=== PATIENT | male | born 1940 | race Caucasian/White ===

== ENCOUNTER → 2016-12-25 | Outpatient (CLI) | payer MEDICARE, BC ==
--- NOTE | 2016-12-25 13:36 | CTL ---
EXAMINATION TYPE: CT Low Dose Lung DATE OF EXAM ORDERED: 12/25/2016 1:03 PM HISTORY: Cough, tobacco use. Lung cancer screening CT DLP: 127.[address] CTDI: 3.6 mGy Automated exposure control for dose reduction was used. SCREENING VISIT: COMPARISON: None TECHNIQUE: Low dose computed tomography scan was performed through the chest at 1 mm thick sections a nd reconstructed images in the coronal plane at [address] DIAGNOSTIC QUALITY: Satisfactory FINDINGS: LUNG NODULES: None. Biapical pleural-based thickening noted. No consolidative pneumonia, pleural effusion or pneumothorax . Within the right upper lobe axial image 52 there is a 2 mm pulmonary nodule. Additional calcified nod ule in the right upper lobe image 64 measuring 2 mm. Additional 2 mm nodule within the right upper lo be axial image 106. Calcified nodule in the right middle lobe axial image 114 There is a larger calcified nodule within the superior segment right lower lobe axial image 121 sugge stive of granuloma. Within the left upper lobe lingular segment image #140 there is a calcified nodule measuring 3 mm. Atherosclerotic changes of the aorta. Measurements at the upper limits of normal. Calcified lymph nod es in the hilum. Coronary artery calcification seen. Cardiomegaly noted. There is a large mixed density mass involving the right adrenal gland likely related to myelo lipoma or angiomyolipoma. Measures 7 cm and could be correlated with MRI. Degenerative and hypertrophic change of the spine. IMPRESSION: Probably benign finding 1. Multiple pulmonary nodules measuring 5 mm or less some of which are calcified suggestive of granul lili. 2. 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 This could be correlated with dedicated CT scan as this is only partially inc luded on this CT of the chest. FOLLOW UP CT CHEST RECOMMENDATION: 6 month follow-up recommended CT LUNG RAD: 3
== END ==
LOC: RADCTMAIN 11:49
PROVIDERS: ATTEND Family Medicine
DX: Z09 Encounter for follow-up examination after completed treatment for conditions other than malignant neoplasm (principal); R91.8 Other nonspecific abnormal finding of lung field; Z87.891 Personal history of nicotine dependence; Z12.2 Encounter for screening for malignant neoplasm of respiratory organs

== ENCOUNTER 2016-12-29 09:07 | Day surgery (SDC) | payer MEDICARE, BC ==
[2016-12-25 12:36] VITALS: BMI 34.9
[~2016-12-29 09:07] MED LIST: LACTATED RINGERS 1,000 ML IV SCH; LIDOCAINE 1% 20 ML VIAL (10MG/ML) FOR IV START INTRADERMA PRN
[2016-12-29 09:24] VITALS: TEMP 97
[2016-12-29] MEDS ORDERED: LIDOCAINE 1% INJ 10MG/ML (20 ML MDV) ONE (10:15)
[2016-12-29] MEDS ORDERED: PROPOFOL 10 MG/ML 20 ML VIAL IV ONE (10:15)
--- NOTE | 2016-12-29 10:22 | P.GSHP ---
History of Present Illness H&P Date: 12/29/16 Chief Complaint: History colonic Polyps, screening colonoscopy This is a 76-year-old male referred from Kim Howell. Patient presented today for screening colonoscopy. His last colonoscopy was over 10 years ago. He has history of colonic polyps - Constitutional Constitutional: Reports as per HPI Past Medical History Past Medical History: Hypertension, Prostate Disorder, Thyroid Disorder Additional Past Medical History / Comment(s): hemorrhoids, occasional rectal bleeding History of Any Multi-Drug Resistant Organisms: None Reported Past Surgical History: Hernia Repair, Orthopedic Surgery Additional Past Surgical History / Comment(s): carpal tunnel repair Past Anesthesia/Blood Transfusion Reactions: No Reported Reaction Smoking Status: Current every day smoker Past Alcohol Use History: Rare Additional Past Alcohol Use History / Comment(s): 1ppd for 60 yrs. Past Drug Use History: None Reported - Past Family History Mother Family Medical History: No Reported History Medications and Allergies Home Medications Medication Instructions Recorded Confirmed Type Irbesartan [Avapro] 300 mg PO DAILY 12/25/16 12/29/16 History Levothyroxine Sodium [Synthroid] 150 mcg PO DAILY 12/25/16 12/29/16 History Tamsulosin [Flomax] 0.4 mg PO DAILY 12/25/16 12/29/16 History Allergies Allergy/AdvReac Type Severity Reaction Status Date / Time No Known Allergies Allergy Verified 12/29/16 09:18 Surgical - Exam Vital Signs Temp Pulse Resp BP Pulse Ox 97.0 F L 73 18 153/92 97 12/29/16 09:23 12/29/16 09:23 12/29/16 09:23 12/29/16 09:23 12/29/16 09:23 - General well developed, no distress - Eyes PERRL - ENT normal pinna - Neck no masses - Respiratory normal expansion - Cardiovascular Rhythm: regular - Abdomen Abdomen: soft, non tender Assessment and Plan Plan: History of colonic polyps. We'll perform screening colonoscopy.
--- NOTE | 2016-12-29 10:32 | P.OP ---
Date of Procedure: 12/29/16 Preoperative Diagnosis: Screening colonoscopy History of colonic polyps Postoperative Diagnosis: Rectal polyp Diverticulosis Procedure(s) Performed: Colonoscopy Anesthesia: MAC Surgeon: Farshad Verde Pathology: other (Rectal polyp) Condition: stable Disposition: PACU Description of Procedure: The patient's placed on the endoscopy table in the lateral position. He received IV sedation. Digital rectal exam was performed which revealed no abnormalities. The prostate was symmetrical without nodules. The flexible colonoscope was then placed the patient's anus and passed throughout the entire colon. The ileocecal valve was visualized. The cecum, ascending and transverse colon appeared normal. In the descending; there is mild diverticular changes. Scope was then brought back the rectum and there appeared to be a small sessile polyp. This was removed the forcep. The scope was withdrawn for patient.
[2016-12-29 10:55] VITALS: BP 136/75; PULSE 57; RESP 18
== END 2016-12-29 11:16 | disposition home or self-care (01) ==
LOC: ORWHC2ENDO 09:07
PROVIDERS: ATTEND Surgery
DX: Z12.11 Encounter for screening for malignant neoplasm of colon (principal); Z86.010 Personal history of colon polyps; K62.1 Rectal polyp; K57.30 Diverticulosis of large intestine without perforation or abscess without bleeding; I10 Essential (primary) hypertension; E07.9 Disorder of thyroid, unspecified; F17.200 Nicotine dependence, unspecified, uncomplicated; N40.0 Benign prostatic hyperplasia without lower urinary tract symptoms; Z79.899 Other long term (current) drug therapy
CPT/HCPCS: 88305; 45380; J2001; J2704

== ENCOUNTER → 2017-01-15 | Outpatient (CLI) | payer MEDICARE, BC ==
[2017-01-15 16:44] LABS: Blood Urea Nitrogen 24 mg/dL (9-20); Non-African American GFR(MDRD) 56 (>60 ml/min/1.73 sqM)
--- NOTE | 2017-01-15 18:15 | CT ---
EXAMINATION TYPE: CT abdomen pelvis wo/w con DATE OF EXAM: 01/15/2017 6:01 PM COMPARISON: NONE HISTORY: Disorder of adrenal gland. CT DLP: 2364.80 mGycm Automated exposure control for dose reduction was used. TECHNIQUE: Helical acquisition of images was performed from the lung bases through the pelvis. CONTRAST: Performed with Oral Contrast and without and with IV Contrast, patient injected with 80 mL of Visipaq ue 320. FINDINGS: Lung bases are clear. There is no pleural effusion. Heart size is normal. Liver spleen pancreas gallbladder appear normal. Bile ducts are not dilated. There is an 8 x 7 cm mas s at the upper pole right kidney. This is probably arising from the right adrenal gland and has fat a nd soft tissue density. There is no calcification. The mass appears to surround the right adrenal gla nd. Left adrenal gland appears normal. There is a 3 cm cortical cyst on the lower pole right kidney. There is no hydronephrosis. There is no retroperitoneal adenopathy. There is no ascites. The noncontrast images show no calcification in the mass. The contrast images show no definite enhanc ement. The appendix appears normal. I see no intestinal wall thickening. There are no dilated loops. Abdominal aorta is atheromatous. Darryn dder distends smoothly. There is no sign of a pelvic mass. I see no bony destructive process.: IMPRESSION: LARGE MASS AT THE UPPER POLE RIGHT KIDNEY PROBABLY ARISES FROM THE ADRENAL GLAND. THIS HAS FAT AND SO FT TISSUE DENSITY. THIS IS PREDOMINANTLY FAT. I WOULD CONSIDER THE POSSIBILITIES OF A ANGIOMYOLIPOMA, ATYPICAL LIPOMA OR A TERATOMA. THE MASS HAS A FAIRLY WELL-DEFINED THIN CAPSULE AND THIS SUGGESTS A M ORE BENIGN ETIOLOGY. RIGHT RENAL CYST. MASS IS NOT CHANGED IN SIZE COMPARED TO CT SCAN OF 12-25-16. THERE IS A 2 MM NONOBSTR UCTING LEFT RENAL CORTICAL CALCIFICATION OF DOUBTFUL SIGNIFICANCE. THERE ARE 1 TO 2 MM TINY CALCIFICA TIONS IN THE RIGHT KIDNEY THAT COULD BE VASCULAR.
== END | disposition home or self-care (01) ==
LOC: RADCTMAIN 16:05
PROVIDERS: ATTEND Family Medicine
DX: N28.1 Cyst of kidney, acquired (principal); N28.89 Other specified disorders of kidney and ureter
CPT/HCPCS: 82565; 84520; 74178; 36415; Q9967

== ENCOUNTER 2017-01-27 06:30 | Day surgery (SDC) | payer MEDICARE, BC ==
[2017-01-26 11:58] VITALS: BMI 31.9
[~2017-01-27 06:30] MED LIST changes: +DEXAMETHASONE SOD PHOSPHATE 10 MG/ML 1 ML VIAL IV ONE; +HEPARIN SODIUM,PORCINE 5,000 UNIT/ML 1 ML VIAL SQ ONE; +HYDROmorphone 1 MG/ML 1 ML SYRINGE IVP PRN; +ONDANSETRON 4 MG/2 ML VIAL IVP ONE; +ceFAZolin 2 GM in SODIUM CHLORIDE 0.9% 100 ML IVPB ONE
[2017-01-27 07:27] LABS: Anion Gap 11 mmol/L; Calcium 9.7 mg/dL (8.4-10.2); Carbon Dioxide 25 mmol/L (22-30); Chloride 107 mmol/L (98-107); Glucose 107 mg/dL (74-99); Non-African American GFR(MDRD) 55 (>60 ml/min/1.73 sqM); Sodium 143 mmol/L (137-145)
[2017-01-27] MEDS ORDERED: BUPIVACAIN-EPI 0.25%-1:200,000 30 ML VIAL SQ ONE ×3 (07:32)
--- NOTE | 2017-01-27 07:35 | P.GSHP ---
History of Present Illness H&P Date: 01/27/17 Chief Complaint: Incarcerated ventral hernia This is a 75-year-old male who presents today for laparoscopic robotic system repair of incarcerated ventral hernia. Patient developed a tender mass approximate 47 is above the umbilicus. Past Medical History Past Medical History: Hypertension, Prostate Disorder, Thyroid Disorder Additional Past Medical History / Comment(s): HEMORRHOIDS, OCCASIONAL RECTAL BLEEDING, HERNIA. History of Any Multi-Drug Resistant Organisms: None Reported Past Surgical History: Hernia Repair, Orthopedic Surgery Additional Past Surgical History / Comment(s): CARPAL TUNNEL REPAIR, COLONOSCOPY 12/29/16 Past Anesthesia/Blood Transfusion Reactions: No Reported Reaction Past Psychological History: No Psychological Hx Reported Smoking Status: Current every day smoker Past Alcohol Use History: Daily Additional Past Alcohol Use History / Comment(s): DRINKS 6 PACK PER WEEK . SMOKES 1PPD , SMOKING FOR 60 YEARS. Past Drug Use History: None Reported - Past Family History Mother Family Medical History: No Reported History Medications and Allergies Home Medications Medication Instructions Recorded Confirmed Type Irbesartan [Avapro] 300 mg PO DAILY 12/25/16 01/27/17 History Levothyroxine Sodium [Synthroid] 150 mcg PO DAILY 12/25/16 01/27/17 History Tamsulosin [Flomax] 0.4 mg PO DAILY 12/25/16 01/27/17 History Allergies Allergy/AdvReac Type Severity Reaction Status Date / Time No Known Allergies Allergy Verified 01/27/17 06:37 Surgical - Exam Vital Signs Temp Pulse Resp BP Pulse Ox 97.7 F 55 L 16 181/98 96 01/27/17 06:47 01/27/17 06:47 01/27/17 06:47 01/27/17 06:47 01/27/17 06:47 - General well developed, no distress - Eyes PERRL - ENT normal pinna - Neck no masses - Respiratory normal expansion - Cardiovascular Rhythm: regular - Abdomen 4 cm incarcerated ventral hernia located approximately 5 cm above the umbilicus. The mass is firm and mildly tender. Abdomen: soft, non tender Assessment and Plan Plan: Incarcerated ventral hernia. We'll perform laparoscopic robotic-assisted repair.
[2017-01-27 07:38] LABS: Basophils % (A) 1 %; CH 30.7; Eosinophils # (A) 0.2 k/uL (0-0.7); Eosinophils % (A) 3 %; HCT 47.4 % (39.0-53.0); HDW 2.42; HGB 15.9 gm/dL (13.0-17.5); Luc # (Auto) 0.22; Luc % (Auto) 3; Lymphocytes # (A) 2.1 k/uL (1.0-4.8); Lymphocytes % (A) 32 %; MCH 30.4 pg (25.0-35.0); MCHC 33.6 g/dL (31.0-37.0); MCV 90.5 fL (80.0-100.0); Monocytes # (A) 0.6 k/uL (0-1.0); Monocytes % (A) 9 %; Neutrophils # (A) 3.5 k/uL (1.3-7.7); Neutrophils % (A) 53 %; RBC 5.24 m/uL (4.30-5.90); RDW 13.7 % (11.5-15.5); WBC 6.7 k/uL (3.8-10.6)
[2017-01-27] MEDS ORDERED: MIDAZOLAM 2 MG/2 ML VIAL ONE (07:44)
[2017-01-27] MEDS ORDERED: SUCCINYLCHOLINE CHLORIDE 100 MG/5 ML SYR IV ONE (07:44)
[2017-01-27] MEDS ORDERED: fentaNYL (PF) 50 MCG/ML 2 ML AMP ONE (07:44)
[2017-01-27] MEDS ORDERED: LIDOCAINE 1% INJ 10MG/ML (20 ML MDV) ONE (07:44)
[2017-01-27] MEDS ORDERED: GLYCOPYRROLATE 0.2 MG/ML 2 ML VIAL ONE (07:44)
[2017-01-27] MEDS ORDERED: ePHEDrine 50 MG/ML 1 ML AMP ONE (07:44)
[2017-01-27] MEDS ORDERED: NEOSTIGMINE 1 MG/ML 10 ML VIAL ONE (07:44)
[2017-01-27] MEDS ORDERED: ROCURONIUM BROMIDE 10 MG/ML 10 ML VIAL IV ONE (07:44)
[2017-01-27] MEDS ORDERED: PROPOFOL 10 MG/ML 20 ML VIAL IV ONE (07:44)
[2017-01-27 07:45] LABS: Potassium 5.4 mmol/L (3.5-5.1)
[2017-01-27 08:37] LABS: Blood Urea Nitrogen 22 mg/dL (9-20)
--- NOTE | 2017-01-27 08:48 | P.OP ---
Date of Procedure: 01/27/17 Preoperative Diagnosis: Incarcerated ventral hernia Postoperative Diagnosis: Incarcerated ventral hernia Procedure(s) Performed: Laparoscopic robotic-assisted repair of incarcerated ventral hernia Anesthesia: CESIA Surgeon: Farshad Verde Estimated Blood Loss (ml): 5 Pathology: none sent Condition: stable Disposition: PACU Description of Procedure: Patient's placed on the operating table in the supine position. He received general anesthesia. His abdomen was then prepped and draped usual sterile fashion. The skin incision sites were anesthetized with 1% local Xylocaine. Using an 11 blade the skin was incised in the left upper quadrant 5 mm trocar was placed into the peritoneal cavity. The abdomen was insufflated. After adequate insufflation the laparoscope was placed back into the peritoneal cavity. Next a 8 mm robotic trocar was placed in the left lower quadrant and a 12 mm trochars placed the left lateral position. And the original 5 mm trocar was exchanged for an 8 mm robotic trocar. The patient's placed in the left side up position. The patient was undocked the robot. There were adhesions noted within the peritoneal cavity. The proximal to 10 minutes of operative time used to lyse adhesions. The incarcerated ventral hernia was visualized. The omentum was reduced back into the perineal cavity. The fascial defect was then closed with oh the lock suture. Next the ventral light ST mesh was used to buttress the repair the ventral light ST mesh was secured with 2 OV lock suture. The patient was then undocked from the robot. And then the needles were retrieved. The fascia the 12 mm trocar site was closed with 0 Ethibond suture using a David Magana suture passer and then the skin was closed interrupted 3-0 Monocryl suture. Dermabond was applied. Patient was sent to recovery in stable condition.
[2017-01-27] MEDS ORDERED: LACTATED RINGERS 1,000 ML IV ONE (08:53)
[2017-01-27 09:13] VITALS: TEMP 97
[2017-01-27 09:20] VITALS: RESP 16
[2017-01-27 10:36] VITALS: BP 165/78; PULSE 55
[2017-01-27] MEDS ORDERED: HYDROcodone/APAP 7.5-325MG 1 EACH TAB PO ONE (11:27)
== END 2017-01-27 12:16 | disposition home or self-care (01) ==
LOC: OR 06:30
PROVIDERS: ATTEND Surgery
DX: K43.6 Other and unspecified ventral hernia with obstruction, without gangrene (principal); I10 Essential (primary) hypertension; E07.9 Disorder of thyroid, unspecified; N40.0 Benign prostatic hyperplasia without lower urinary tract symptoms; F17.200 Nicotine dependence, unspecified, uncomplicated; Z79.899 Other long term (current) drug therapy
CPT/HCPCS: 49653; 93005; 80048; 85025; C1781; J2250; J1100; J2710; J0690; J2405; J2001; J3010; J0330; J2704

== ENCOUNTER 2017-06-04 09:36 | Day surgery (SDC) | payer MEDICARE, BC ==
[2017-06-03 08:19] VITALS: BMI 33.4
[~2017-06-04 09:36] MED LIST changes: -DEXAMETHASONE SOD PHOSPHATE 10 MG/ML 1 ML VIAL IV ONE; -LACTATED RINGERS 1,000 ML IV SCH; -LIDOCAINE 1% 20 ML VIAL (10MG/ML) FOR IV START INTRADERMA PRN; +NA PHOS,M-B/NA PHOS,DI-BA 133 ML ENEMA RECTAL ONE; -ONDANSETRON 4 MG/2 ML VIAL IVP ONE; +ONDANSETRON 4 MG/2 ML VIAL IVP PRN; +Pre Op ABX Message 1 EACH MISC MISCELLANE ONE; -ceFAZolin 2 GM in SODIUM CHLORIDE 0.9% 100 ML IVPB ONE
[2017-06-04 10:04] VITALS: TEMP 97.4
[2017-06-04] MEDS ORDERED: LIDOCAINE 1% 20 ML VIAL (10MG/ML) FOR IV START INTRADERMA ONE (10:25)
[2017-06-04] MEDS: LACTATED RINGERS 1,000 ML IV SCH ×2 (10:33→11:33)
--- NOTE | 2017-06-04 11:21 | P.GSHP ---
History of Present Illness H&P Date: 06/04/17 Chief Complaint: Anal bleeding, itching This is a 76-year-old male for from Dr. Kim Howell. Patient is today for hemorrhoidectomy. He's had issues with anal itching and bleeding. - Constitutional Constitutional: Reports as per HPI Past Medical History Past Medical History: Hypertension, Thyroid Disorder Additional Past Medical History / Comment(s): hemorrhoids, History of Any Multi-Drug Resistant Organisms: None Reported Past Surgical History: Hernia Repair, Tonsillectomy Additional Past Surgical History / Comment(s): "rupture near scrotom", Past Anesthesia/Blood Transfusion Reactions: No Reported Reaction Smoking Status: Current every day smoker - Past Family History Mother Family Medical History: No Reported History Medications and Allergies Home Medications Medication Instructions Recorded Confirmed Type Irbesartan [Avapro] 300 mg PO DAILY 12/25/16 06/04/17 History Levothyroxine Sodium [Synthroid] 150 mcg PO DAILY 12/25/16 06/04/17 History Tamsulosin [Flomax] 0.4 mg PO DAILY 12/25/16 06/04/17 History Allergies Allergy/AdvReac Type Severity Reaction Status Date / Time No Known Allergies Allergy Verified 06/04/17 10:08 Surgical - Exam Vital Signs Temp Pulse Resp BP Pulse Ox 97.4 F L 54 L 16 169/75 96 06/04/17 10:02 06/04/17 10:02 06/04/17 10:02 06/04/17 10:02 06/04/17 10:02 - General well developed, no distress - Eyes PERRL - ENT normal pinna - Neck no masses - Respiratory normal expansion - Cardiovascular Rhythm: regular - Abdomen Abdomen: soft, non tender - Rectum Hemorrhoids: moderate (Internal and external hemorrhoids) Assessment and Plan Plan: Internal and external hemorrhoids. We'll perform hemorrhoidectomy.
[2017-06-04] MEDS ORDERED: PROPOFOL 10 MG/ML 20 ML VIAL IV ONE (11:35)
[2017-06-04] MEDS ORDERED: fentaNYL (PF) 50 MCG/ML 2 ML AMP ONE (11:35)
[2017-06-04] MEDS ORDERED: MIDAZOLAM 2 MG/2 ML VIAL ONE (11:35)
[2017-06-04] MEDS ORDERED: LIDOCAINE 1% INJ 10MG/ML (20 ML MDV) ONE (11:35)
[2017-06-04] MEDS ORDERED: BUPIVACAINE-EPI 0.5%-1:200,000 10 ML VIAL SQ ONE (11:51)
[2017-06-04] MEDS ORDERED: LIDOCAINE 1% INJ 10MG/ML (20 ML MDV) SQ ONE (11:52)
[2017-06-04] MEDS ORDERED: GELATIN SPONGE,ABSORB (LARGE) 1 EACH SPONGE TOPICAL ONE (11:54)
--- NOTE | 2017-06-04 12:11 | P.OP ---
Date of Procedure: 06/04/17 Preoperative Diagnosis: Internal and Hemorrhoids Postoperative Diagnosis: Internal and external hemorrhoids Procedure(s) Performed: Internal and external hemorrhoidectomy Implants: Anesthesia: MAC Surgeon: Farshad Verde Estimated Blood Loss (ml): 5 Pathology: other (Internal and external hemorrhoids) Condition: stable Disposition: PACU Indications for Procedure: Operative Findings: Description of Procedure: The patient's placed on the operative table in the prone jackknife position. He received IV sedation. His perineum was prepped and draped usual sterile fashion. Local anesthetic was applied to the anus. The bivalved anal retractor was used to expose hemorrhoids. The left lateral hemorrhoid column was grasped with a pair of Allis clamps and using Harmonic scissors hemorrhoidectomy is performed. The right anterior and and right posterior hemorrhoidal column was dissected in identical fashion. The specimen sent to pathology. The anus was inspected there is no bleeding seen. The anus was packed with Gelfoam. Patient was sent to recovery room in stable condition.
[2017-06-04 12:37] VITALS: RESP 16
[2017-06-04 13:09] VITALS: BP 119/59; PULSE 54
== END 2017-06-04 13:35 | disposition home or self-care (01) ==
LOC: OR 09:36
PROVIDERS: ATTEND Surgery
DX: K64.8 Other hemorrhoids (principal); K64.4 Residual hemorrhoidal skin tags; I10 Essential (primary) hypertension; E07.9 Disorder of thyroid, unspecified; F17.200 Nicotine dependence, unspecified, uncomplicated; Z79.899 Other long term (current) drug therapy
CPT/HCPCS: 46260; J2250; J1644; J2001; J3010; J2704; 88304; 88305

== ENCOUNTER → 2017-07-23 | Outpatient (CLI) | payer MEDICARE, BC ==
[2017-07-23 14:14] LABS: Blood Urea Nitrogen 21 mg/dL (9-20); Non-African American GFR(MDRD) 59 (>60 ml/min/1.73 sqM)
--- NOTE | 2017-07-23 15:33 | CT ---
EXAMINATION TYPE: CT chest w con DATE OF EXAM: 07/23/2017 COMPARISON: 12-25-16 HISTORY: Pulmonary nodules CT DLP: 473.10 mGycm. Automated Exposure Control for Dose Reduction was Utilized. TECHNIQUE: CT scan of the thorax is performed following with IV Contrast, patient injected with 100 ml mL of Omnipaque 300. FINDINGS: LUNGS: The previously seen 2 mm pulmonary nodule within the right upper lobe is not visualized on tod ay's examination and may relate to slice. 2 mm calcified nodule does not appear calcified on today's examination, however is unchanged. Another 2 mm right upper lobe nodule and right middle lobe 2 mm ca lcified pulmonary nodule both previously seen on the examination of 12/25/2016 are not identified, also likely due to slice selection. Calcified 3 mm pulmonary nodule within the superior right lower lobe seen on series 4 image 28 is now identified. 2 mm noncalcified left pulmonary nodule near the interlobar fissure is present on series 4 image 34. No pulmonary masses are seen. There is no pleural effusion or pneumothorax seen. The tr acheobronchial tree is patent. MEDIASTINUM: There are no greater than 1 cm hilar or mediastinal lymph nodes. Calcified hilar lymph nodes are again demonstrated. No pericardial effusion is seen. Moderate three-vessel coronary artery atherosclerosis is noted. OTHER: There is stability of the approximately 7.2 x 7.3 cm right adrenal gland lesion favored to rep resent a benign adrenal myelolipoma. Differences in measurement are related to differences in techniq ue and this mass has not decreased in size in the interim. There is partial visualization of a probab le left midpole renal cyst measuring 2.2 cm. Degenerative changes of the thoracic spine are seen, mil d in degree. IMPRESSION: 1. Multiple subcentimeter pulmonary nodules, most of which are calcified and favored to represent seq uela of benign granulomatous disease. Some of the previously seen pulmonary nodules are not visualize d given the small size and differences in slice selection. The nodules that are redemonstrated are st able. 2. Stability of the approximately 7.3 cm right adrenal gland lesion with macroscopic fat favored to r epresent a benign adrenal myelolipoma. 3. Moderate three-vessel coronary artery atherosclerosis.
== END | disposition home or self-care (01) ==
LOC: RADCTMAIN 13:15
PROVIDERS: ATTEND Family Medicine
DX: I25.10 Atherosclerotic heart disease of native coronary artery without angina pectoris (principal); R91.8 Other nonspecific abnormal finding of lung field
CPT/HCPCS: 82565; 84520; 71260; 36415; Q9967

== ENCOUNTER → 2018-07-20 | Outpatient (CLI) | payer MEDICARE ==
--- NOTE | 2018-07-20 08:57 | CT ---
EXAMINATION TYPE: CT abdomen w con DATE OF EXAM: 07/20/2018 COMPARISON: 01/15/2017 HISTORY: Renal masss CT DLP: 868.2 mGycm Automated exposure control for dose reduction was used. TECHNIQUE: Helical acquisition of images was performed from the lung bases through the top of iliac crest to include entire abdomen. CONTRAST: Performed with Oral Contrast and with IV Contrast, patient injected with 100 mL of Isovue 300. FINDINGS: LUNG BASES: No significant abnormality is appreciated. LIVER/GB: No significant abnormality is appreciated. PANCREAS: No significant abnormality is seen. SPLEEN: Tiny accessory spleen noted. Within the laney hepatis there is a area of lymphadenopathy liberty uring a short axis of 1.2 cm retrospectively stable. ADRENALS: There is a large mixed adrenal mass contains soft tissue and fatty components most typical of a myelo lipoma and less likely related to a angiomyolipoma. Measuring approximately 8 x 7 cm. Left adrenal gland has a normal appearance.. KIDNEYS: No hydronephrosis or nephrolithiasis. There is a stable appearing low density lesion involvi ng the medial mid cortex right kidney measuring 2.3 cm and 12 Hounsfield units compatible simple cyst . Smaller exophytic less than a centimeter lesion involving the right kidney is too small to characte rize but stable. Tiny hypodensity upper pole mid cortex left kidney is stable and too small to charac terize. BOWEL: No significant abnormality is seen. LYMPH NODES: There is a 1.2 cm lymph node in the laney hepatis additional shotty mesenteric adenopath y. OSSEOUS STRUCTURES: No significant abnormality is seen. OTHER: Atherosclerotic change of the vasculature noted. Hypertrophic changes of the vertebral column. IMPRESSION: 1. Stable 8 x 7 cm predominantly fatty mass involving the right adrenal gland most typical myelo lipo ma. Less likely consideration angiomyolipoma. 2. Stable bilateral renal lesions, some of which are too small to characterize, most likely on the ba sis of simple cysts. 3. Stable adenopathy laney hepatis measuring short axis I.2 cm.
== END | disposition home or self-care (01) ==
LOC: RADCTMAIN 07:21
PROVIDERS: ATTEND Family Medicine
DX: N28.89 Other specified disorders of kidney and ureter (principal); E27.8 Other specified disorders of adrenal gland
CPT/HCPCS: 82565; 84520; 74160; 36415; Q9967

== ENCOUNTER → 2019-08-18 | Outpatient (CLI) | payer MEDICARE ==
--- NOTE | 2019-08-18 13:39 | CT ---
EXAMINATION TYPE: CT abdomen wo con DATE OF EXAM: 08/18/2019 COMPARISON: Prior CT 07/20/2018 HISTORY: ADRENAL MASS CT DLP: 565.8 mGycm Automated exposure control for dose reduction was used. TECHNIQUE: Helical acquisition of images was performed from the lung bases through the top of iliac crest to include entire abdomen. CONTRAST: Performed with Oral Contrast and without IV contrast. FINDINGS: Lack of contrast may compromise sensitivity. Present in the soft tissues of the right lower quadrant. Infrarenal abdominal aorta measures approximately 3.3 cm. There is wall calcification pres ent. There are coronary artery calcifications present. LUNG BASES: No significant abnormality is appreciated. LIVER/GB: Low density within the liver may be due to hepatic steatosis, gallbladder is unremarkable. PANCREAS: No significant abnormality is seen. SPLEEN: No significant change is seen, there are some scattered calcifications present likely due to old granulomatous disease. ADRENALS: The predominantly fat density focus in the super renal location on the right side strand-li ke internal soft tissue density is again noted and measures 7.7 x 7.4 x 7.5 cm as compared to previou s exam when it measured 7.1 x 7.3 x 7.3 cm. Mass effect is noted on the superior pole of the right ki dney as on prior exam. KIDNEYS: Some punctate calcifications are associated with the kidneys, there is no hydronephrosis. P robable cortical cysts are again seen within the right kidney in exophytic location medially and late rally. BOWEL: No significant abnormality is seen. LYMPH NODES: No significan abnormality is appreciated. OSSEOUS STRUCTURES: No significant abnormality is seen. FREE AIR: No Free Air visible ASCITES: None visible. RETROPERITONEAL ADENOPATHY: No Retroperitoneal Adenopathy visible. OTHER: IMPRESSION: MINIMAL INTERVAL GROWTH DESCRIBED IN PATIENT'S RIGHT ADRENAL MASS LIKELY REPRESENTING MYELOLIPOMA. POSSIBLE HEPATIC STEATOSIS. NONCONTRAST EXAM. Postop change. Infrarenal abdominal aortic ectasia, fo llow-up.
== END | disposition home or self-care (01) ==
LOC: RADCTMAIN 11:53
PROVIDERS: ATTEND Urology
DX: D35.01 Benign neoplasm of right adrenal gland (principal); I77.811 Abdominal aortic ectasia; Z98.890 Other specified postprocedural states
CPT/HCPCS: 74150

== ENCOUNTER → 2020-08-18 | Outpatient (CLI) | payer MEDICARE ==
--- NOTE | 2020-08-20 15:33 | CT ---
EXAMINATION TYPE: CT abdomen wo con DATE OF EXAM: 08/18/2020 COMPARISON: Prior CT 08/18/2019 HISTORY: follow up known adrenal mass, microhematuria CT DLP: 543.1 mGycm Automated exposure control for dose reduction was used. TECHNIQUE: Helical acquisition of images was performed from the lung bases through the top of iliac crest to include entire abdomen. CONTRAST: Performed with Oral Contrast and without IV contrast. FINDINGS: Lack of intravenous contrast could compromise sensitivity of the exam. Coronary artery calc ifications are noted incidentally. LUNG BASES: There is abnormal density at extending from the right infrahilar location into the right lower lobe which is an interval finding. LIVER/GB: No significant change is appreciated. Low-attenuation within the liver likely due to hepati c steatosis PANCREAS: No significant abnormality is seen. SPLEEN: No significant abnormality is seen. Calcifications within the spleen again noted consistent w ith old granulomatous disease. ADRENALS: No significant interval change is seen. Predominantly fat mass within the right super renal location some soft tissue density associated is well encapsulated and measures 7.7 cm in AP dimensio n, 7.5 cm in transverse dimension 7.9 cm in cephalad to caudal dimension similar to prior exam. KIDNEYS: No significant change is seen. BOWEL: No significant abnormality is seen. LYMPH NODES: No significant abnormality is appreciated. OSSEOUS STRUCTURES: No significant abnormality is seen. FREE AIR: No Free Air visible ASCITES: None visible. RETROPERITONEAL ADENOPATHY: No Retroperitoneal Adenopathy visible. OTHER: Abdominal aorta measures approximately 2.3 cm in greatest dimension, atheromatous changes are present similar to prior IMPRESSION: ABNORMAL INFRAHILAR DENSITY, THERE MAY BE POSTOBSTRUCTIVE ATELECTATIC CHANGES OR PNEUMONIA, RECOMMEND CHEST X-RAY AND POSSIBLY CHEST CT FOLLOW-UP. STABLE RIGHT ADRENAL MASS LIKELY MYELOLIPOMA. HEPATIC S TEATOSIS. NONCONTRAST EXAM. A Yellow level critical message alert has been initiated for Tj Dickey MD via the [employer] Critical Results System on 08/20/2020 3:29 PM. This message alert has been sent to Tj Dickey MD via the preferences provided by the clinician for the receipt of Radiology Critical Findings. Mess age ID [id number].
== END | disposition home or self-care (01) ==
LOC: RADCTMAIN 07:02
PROVIDERS: ATTEND Urology
DX: K76.0 Fatty (change of) liver, not elsewhere classified (principal); E27.8 Other specified disorders of adrenal gland
CPT/HCPCS: 74150

== ENCOUNTER → 2020-08-24 | Outpatient (CLI) | payer MEDICARE ==
--- NOTE | 2020-08-24 15:01 | CT ---
EXAMINATION TYPE: CT chest wo con DATE OF EXAM: 08/24/2020 COMPARISON: CTA chest 07/23/2017. CT abdomen pelvis 06/17/2017. CT abdomen pelvis 08/18/2020. HISTORY: Pneumonia. COPD. CT DLP: 525.1 mGycm Automated exposure control for dose reduction was used. CONTRAST: CT scan of the chest is performed without intravenous contrast. FINDINGS: LUNGS: There is consolidative opacity and atelectasis of the right liver lobe. Calcified granuloma of the right lower lobe redemonstrated. No pleural effusion. No pneumothorax. The tracheobronchial tree is patent. MEDIASTINUM/SOFT TISSUES: No axillary or mediastinal lymphadenopathy greater than 1 cm. Calcified rig ht hilar lymph nodes. Cardiac size is normal. Calcified coronary artery disease. No pericardial effus ion. No thoracic aortic aneurysm. Atherosclerotic change of the thoracic aorta. UPPER ABDOMEN: There is a redemonstrated right adrenal myolipoma measuring up to 7.8 cm, most likely benign. Right renal cysts. OSSEOUS: Degenerative changes of the spine. IMPRESSION: Pneumonia of the right lower lobe with atelectasis. Follow-up to resolution is recommended.
== END | disposition home or self-care (01) ==
LOC: RADCTMAIN 11:51
PROVIDERS: ATTEND Family Medicine
DX: J18.1 Lobar pneumonia, unspecified organism (principal); J98.11 Atelectasis
CPT/HCPCS: 71250

== ENCOUNTER → 2021-08-16 | Outpatient (CLI) | payer MEDICARE ==
--- NOTE | 2021-08-16 09:21 | CT ---
EXAMINATION TYPE: CT chest w con DATE OF EXAM: 08/16/2021 COMPARISON: 08/24/2020 HISTORY: 81-year-old male hemoptysis, weight loss. R91.8, R04.2, Z72.0 TECHNIQUE: Contiguous axial scanning of the chest after the administration of 80 mL of Isovue 300. C oronal/sagittal reconstructions performed. CT DLP: 386.9mGycm. Automatic exposure control utilized for a dose reduction. FINDINGS: Heart normal size without pericardial effusion. Three-vessel coronary artery calcifications are prese nt in remarkable for coronary artery disease. Aortic valvular calcifications. Moderate atherosclerotic calcifications within the joint vessel branc zach anatomy. 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 There is new subcarinal lymphadenopathy measuring up to 2.2 cm. There is cut off of the bronchus intermedius with extensive consolidation throughout the right lower lobe and associated small effusion. There is a fluid collection with air-fluid level measuring 5.2 cm in the medial right lower lobe. Right retrocrural lymph node enlargement 1.5 cm. Stable fat and soft tissue density round mass in the right adrenal gland measuring 7.4 cm compatible with myelolipoma. A medial right renal cyst measuring 2.8 cm is redemonstrated. Tiny layering gallsto mohan. Calcified granulomas within the spleen. Bones: No osseous destructive process. IMPRESSION: 1. Cut off of the bronchus intermedius intermedius. Endobronchial neoplasm should be excluded. Recomm end pulmonary medicine referral. 2. Extensive consolidation/pneumonia throughout the right lower lobe. Some of this density may repres ent mass. 3. However, there is also a 5.2 cm fluid collection with air-fluid level in the right lower lobe. Thi s could represent a pulmonary abscess or necrotic tumor with superinfection. 4. Subcarinal lymphadenopathy measuring up to 2.2 cm. Metastatic disease not excluded. 5. 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
== END | disposition home or self-care (01) ==
LOC: RADCTMAIN 07:11
PROVIDERS: ATTEND Family Medicine
DX: J98.4 Other disorders of lung (principal); R59.0 Localized enlarged lymph nodes; D17.5 Benign lipomatous neoplasm of intra-abdominal organs
CPT/HCPCS: 82565; 84520; 71260; 36415; Q9967

== ENCOUNTER 2021-08-20 12:13 | Emergency (ER) | payer MEDICARE ==
[2021-08-20 12:35] VITALS: BP 164/68; PULSE 85; RESP 19; TEMP 98
[2021-08-20] MEDS ORDERED: BACITRACIN OINT 1 EACH PACKET TOPICAL ONE (12:50)
[2021-08-20] MEDS ORDERED: DIPH,PERTUS(ACELL)TETVAC-LF 0.5 ML VIAL IM ONE (12:50)
--- NOTE | 2021-08-20 12:56 | ED ---
Wound/Laceration HPI - General Chief Complaint: Wound/Laceration Stated Complaint: fall, skin tear on elbow Time Seen by Provider: 08/20/21 12:38 Source: patient, RN notes reviewed Mode of arrival: ambulatory Limitations: no limitations - History of Present Illness Initial Comments: Patient is a 81-year-old male presenting to the ED for left arm lacerations post fall. Patient stated that shot to get out of bed today fell into portable closet next bed. Patient denies hitting head or any loss of consciousness with the event, states he just lost his balance. Patient reports full range of motion no numbness tingling or pain associated with left arm lacerations. Patient states last tetanus was more than 5 years ago. Patient does report they are on Plavix. Patient denies any pain at the site. - Related Data Home Medications Medication Instructions Recorded Confirmed Irbesartan [Avapro] 300 mg PO DAILY 12/25/16 08/24/17 Levothyroxine Sodium [Synthroid] 150 mcg PO DAILY 12/25/16 08/24/17 Tamsulosin [Flomax] 0.4 mg PO DAILY 12/25/16 08/24/17 Aspirin [Adult Low Dose Aspirin EC] 81 mg PO DAILY 08/20/17 08/24/17 Previous Rx's Medication Instructions Recorded Cephalexin [Keflex] 500 mg PO Q6HR #28 cap 08/20/21 Allergies Allergy/AdvReac Type Severity Reaction Status Date / Time No Known Allergies Allergy Verified 08/20/21 12:36 Review of Systems ROS Statement: Those systems with pertinent positive or pertinent negative responses have been documented in the HPI. ROS Other: All systems not noted in ROS Statement are negative. Past Medical History Past Medical History: Hypertension, Thyroid Disorder Additional Past Medical History / Comment(s): hemorrhoids, History of Any Multi-Drug Resistant Organisms: None Reported Past Surgical History: Hernia Repair, Tonsillectomy Additional Past Surgical History / Comment(s): "rupture near scrotom", Past Anesthesia/Blood Transfusion Reactions: No Reported Reaction Past Psychological History: No Psychological Hx Reported Smoking Status: Current every day smoker Past Alcohol Use History: Rare Past Drug Use History: None Reported - Past Family History Mother Family Medical History: No Reported History General Exam Limitations: no limitations General appearance: alert, in no apparent distress Respiratory exam: Present: normal lung sounds bilaterally. Absent: respiratory distress, wheezes, rales, rhonchi, stridor Cardiovascular Exam: Present: regular rate, normal rhythm, normal heart sounds. Absent: systolic murmur, diastolic murmur, rubs, gallop, clicks Left Shoulder Exam: Present: normal inspection Upper Arm exam: Present: full ROM, laceration, ecchymosis Elbow exam: Present: full ROM, laceration, ecchymosis Forearm Wrist exam: Present: full ROM, laceration, ecchymosis Hand Wrist exam: Present: normal inspection, full ROM Vascular: Present: normal capillary refill Neurological exam: Present: alert, oriented X3, CN II-XII intact Skin exam: Present: warm, dry, normal color, other (Skin tears to left forearm, upper arm, elbow) Course Vital Signs 08/20/21 12:33 Temperature 98.0 F Pulse Rate 85 Respiratory 19 Rate Blood Pressure 164/68 O2 Sat by Pulse 98 Oximetry Medical Decision Making - Medical Decision Making Patient presents for left arm skin tears post fall. Patient's wound was cleaned and dressed with antibiotic ointment. Wounds were then dressed, patient was given tetanus booster. Patient was counseled pain management with [id number] medications. Return parameters were discussed. Disposition Clinical Impression: Skin tear of left elbow without complication, Skin tear of left forearm without complication, Skin tear of left upper arm without complication Disposition: HOME SELF-CARE Condition: Stable Instructions (If sedation given, give patient instructions): Moderate Sedation (ED) Additional Instructions: Please return to the Emergency Department if symptoms worsen or any other concerns. Prescriptions: Cephalexin [Keflex] 500 mg PO Q6HR #28 cap Is patient prescribed a controlled substance at d/c from ED?: No Referrals: Sabrina Mcdonald MD [Primary Care Provider] - 1-2 days Time of Disposition: 13:17
== END 2021-08-20 13:34 | disposition home or self-care (01) ==
LOC: EC 12:13
DX: S51.012A Laceration without foreign body of left elbow, initial encounter (principal); S51.812A Laceration without foreign body of left forearm, initial encounter; S41.112A Laceration without foreign body of left upper arm, initial encounter; I10 Essential (primary) hypertension; F17.200 Nicotine dependence, unspecified, uncomplicated; Z23 Encounter for immunization; Z79.890 Hormone replacement therapy; Z79.82 Long term (current) use of aspirin; Z79.899 Other long term (current) drug therapy; W18.30XA Fall on same level, unspecified, initial encounter
CPT/HCPCS: 90471; 90715; 99283

== ENCOUNTER → 2021-08-23 | Outpatient (CLI) | payer MEDICARE ==
--- NOTE | 2021-08-27 08:50 | PE ---
EXAMINATION TYPE: PET CT fusion skull to thigh DATE OF EXAM: 08/23/2021 COMPARISON: Chest CT August 16, 2021 and older CTs HISTORY: Lung cancer per order. Symptoms of hemoptysis with abnormal CT. Right lung atelectasis and subcarinal adenopathy. TECHNIQUE: Following the intravenous administration of 10.75 mCi of F-18 FDG, whole body images are performed from the skull base to the midthigh. Images are reviewed on the computer in the coronal, a xial, and sagittal planes. Reconstructed rotating images are created on independent workstation and reviewed on the computer. A localization and attenuation correction CT is performed in conjunction with the PET scan. Blood glucose level equals 119 SCAN: Initial Scan FINDINGS: SKULL BASE AND NECK: No abnormal hypermetabolic uptake. CHEST, MEDIASTINUM, AND HILAR REGION: Persistent right-sided volume loss with mediastinal shift. Pers istent right infrahilar mass occluding portions of the central right middle and lower lobe bronchi ax ial image 108 measuring roughly 5.2 x 4.9 cm with abnormal hypermetabolic uptake, max SUV is 17.3. Di stal to this there is consolidation with air bronchograms within the inferior posterior aspects that has some increased hypermetabolic uptake. There is tiny right pleural effusion. Lack of air bronchogr ams centrally is noted. There is abnormal hypermetabolic uptake throughout the right basilar mass and /or masslike consolidation. Persistent abnormal subcarinal lymph node measuring 2.8 x 1.8 cm axial image 101 with abnormal hyperm etabolic uptake, max SUV is 8.04. There is extension to the posterior aspect of the dianne with nodul arity and mild hypermetabolic uptake. Subcentimeter right paratracheal lymph node shows mild uptake M ax SUV less than 2.5. No abnormal hypermetabolic uptake in the left lung. No additional enlarged hypermetabolic lymph nodes . ABDOMEN AND PELVIS: Persistent round right adrenal mass containing fat and soft tissue density measur ing 7.4 cm axial image 143 is ametabolic. No abnormal hypermetabolic lesions in the abdomen or pelvis . OSSEOUS STRUCTURES: No abnormal hypermetabolic uptake. OTHER CT: Mild to moderate calcified plaque bilateral carotid arteries. Moderate to severe three-vess el coronary artery calcification. Mild cardiomegaly. Atherosclerotic and ectatic thoracic aorta. Infrarenal AAA up to 3.2 cm axial image 177 sigmoid colonic diverticula. Enlarged prostate consistent with BPH. Adjacent pelvic phleboliths. Multilevel Facet arthropathy in the lumbar spine IMPRESSION: Endobronchial mass or neoplasm right infrahilar level difficult to accurately measure as there is basilar extension along with postobstructive atelectasis. Abnormal subcarinal adenopathy. No metastatic disease.
== END | disposition home or self-care (01) ==
LOC: RADPETMAIN 17:07
PROVIDERS: ATTEND Physician Assistant
DX: C34.80 Malignant neoplasm of overlapping sites of unspecified bronchus and lung (principal)
CPT/HCPCS: 78815; A9552

== ENCOUNTER 2021-09-05 11:00 | Day surgery (SDC) | payer MEDICARE ==
[2021-09-03 11:25] VITALS: BMI 27.6
[~2021-09-05 11:00] MED LIST changes: +ALBUTEROL NEB (CONC) 2.5 MG/0.5 ML INHALATION ONE; -HEPARIN SODIUM,PORCINE 5,000 UNIT/ML 1 ML VIAL SQ ONE; -HYDROmorphone 1 MG/ML 1 ML SYRINGE IVP PRN; +LACTATED RINGERS 1,000 ML IV SCH; +LIDOCAINE 1% (10MG/ML) FOR IV START INTRADERMA PRN; +LIDOCAINE 2% (PF) 20 MG/ML 5 ML VIAL INHALATION ONE; +LIDOCAINE VISCOUS 300 MG/15 ML CUP MUCOUS MEM ONE; -NA PHOS,M-B/NA PHOS,DI-BA 133 ML ENEMA RECTAL ONE; -ONDANSETRON 4 MG/2 ML VIAL IVP PRN; -Pre Op ABX Message 1 EACH MISC MISCELLANE ONE
[2021-09-05 11:41] LABS: Glucose,Whole Blood 105 mg/dL (75-99)
[2021-09-05] MEDS ORDERED: PROPOFOL 10 MG/ML 20 ML VIAL IV ONE (11:50)
[2021-09-05] MEDS ORDERED: fentaNYL (PF) 50 MCG/ML 2 ML AMP ONE (11:50)
[2021-09-05] MEDS ORDERED: LIDOCAINE 1% INJ 10MG/ML (20 ML MDV) ONE (11:50)
[2021-09-05] MEDS ORDERED: SUCCINYLCHOLINE CHLORIDE 100 MG/5 ML SYR IV ONE (11:50)
[2021-09-05 12:46] VITALS: TEMP 97.4
[2021-09-05 12:49] VITALS: RESP 16
--- NOTE | 2021-09-05 13:40 | XR ---
EXAMINATION TYPE: XR chest 1V portable DATE OF EXAM: 09/05/2021 COMPARISON: 08/16/2021 HISTORY: Post bronchoscopy TECHNIQUE: Single frontal view of the chest is obtained. FINDINGS: Right-sided consolidation and pleural effusion with no sizable pneumothorax space. Patient is rotated heart size is mildly prominent. Left lung clear. Previous trauma the bilateral clavicle. IMPRESSION: Right lower lobe infiltrate and small pleural effusion.
--- NOTE | 2021-09-05 14:04 | OP ---
OPERATIVE REPORT OPERATIVE REPORT: Bronchoscopy with multiple endobronchial biopsies of tumor involving the bronchus intermedius, brushings of the tumor from the bronchus intermedius, washings of the bronchus intermedius, and multiple Palma needle aspirates of the right subcarinal lymph nodes. ANESTHESIA USED: The patient was placed under general anesthetic. He was intubated by CHAPO, and this was done under general anesthesia. PROCEDURE DESCRIPTION: After the patient was intubated and connected to mechanical ventilation, we monitored his O2 saturation continuously. Blood pressure was intermittently monitored. Cardiac rhythm was continuously monitored. Then the bronchoscope was advanced down to the distal end of the endotracheal tube, and I was able to visualize the dianne, which was noted to be sharp. Then the left side was examined, left upper lobe lingula, left lower lobe. There was no evidence of any endobronchial tumors. The right upper lobe was examined. No evidence of any endobronchial pathology in the right upper lobe. Then as I entered the bronchus intermedius, there was a cauliflower lesion in the distal portion of the bronchus intermedius, completely occluding the right middle lobe bronchus and completely occluding the right lower lobe bronchus. I could not visualize beyond the tumor. Multiple biopsies of the endobronchial tumor were done. Then brushings of the tumor were also done and lavage/washing of the tumor was done. Minimal oozing was noted. The blood loss was very negligible. Then we moved up to the right subcarinal lymph nodes, and I was able to perform multiple subcarinal Palma needle aspirations from the right subcarinal lymph nodes. The procedure was well tolerated. There was no evidence of any complications. Blood loss was extremely minimal. The bronchoscope was pulled out of the airways, and the patient will be sent to Recovery after extubation. Again, no complications during the procedure. MMODL / IJN: [id number] /
[2021-09-05 14:21] VITALS: BP 133/68; PULSE 56
== END 2021-09-05 14:39 | disposition home or self-care (01) ==
LOC: ORWHC2ENDO 11:00
PROVIDERS: ATTEND Internal Medicine
DX: J90 Pleural effusion, not elsewhere classified (principal); Z98.890 Other specified postprocedural states
CPT/HCPCS: 31628; 31629; 31623; 31624; 87070; 87205; 71045; J2001; J3010; J0330; J2704

== ENCOUNTER → 2021-10-24 | Outpatient (CLI) | payer MEDICARE ==
--- NOTE | 2021-10-25 03:07 | MR ---
EXAMINATION TYPE: MR brain wo/w con DATE OF EXAM: 10/24/2021 COMPARISON: None HISTORY: Lung cancer. CONTRAST: Standard multiplanar, multisequence MRI departmental protocol images were obtained without contrast a nd with 8 mL intravenous Gadavist gadolinium contrast. There is cerebral cortical atrophy. There is no mass effect or midline shift. There is no evidence of intracranial hemorrhage. Diffusion images show no evidence of an acute infarct. There is a large muc us retention cyst left maxillary sinus. There are scattered white matter high signal foci at the marinelli -white matter junction both cerebral hemispheres measuring up to 7 mm. Total number is approximately 10. There is also mixed signal in the medial right frontal lobe without enhancement and consistent wi th old infarct. This measures 4 x 2 cm. There is increased fluid signal in the anterior middle crania l fossa on the right side consistent with old temporal lobe encephalomalacia. This area is somewhat r ounded and measures 2.2 cm. Also consider arachnoid cyst. There is normal enhancement of the venous sinuses. There is no pathologic intracranial enhancement. T he sella turcica is normal. Brainstem is intact. Cerebellum is intact. 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 No definite acute intracranial abnormality. White matter high signal foci suggestive of microvascular ischemia. No definite evidence for intracranial metastatic disease.
== END | disposition home or self-care (01) ==
LOC: RADMRIMAIN 14:26
PROVIDERS: ATTEND Internal Medicine Hematology & Oncology
DX: C34.31 Malignant neoplasm of lower lobe, right bronchus or lung (principal)
CPT/HCPCS: 70553; A9585

== ENCOUNTER → 2021-11-29 | Outpatient (CLI) | payer MEDICARE ==
[2021-11-29 15:21] LABS: African American GFR (CKD) 93.8 (60.0-200.0); Anion Gap 8.8 mmol/L (10.00-18.00); BUN/Creat Ratio 21.22 Ratio (12.00-20.00); Blood Urea Nitrogen 19.1 mg/dL (9.0-27.0); Calcium 8.8 mg/dL (8.7-10.3); Carbon Dioxide 25.2 mmol/L (20.0-27.5); Non-African American GFR(CKD) 80.9 (60.0-200.0); Potassium 4.5 mmol/L (3.5-5.5)
== END | disposition home or self-care (01) ==
LOC: LABWHC1 09:55
PROVIDERS: ATTEND Nurse Practitioner
DX: I10 Essential (primary) hypertension (principal); I48.0 Paroxysmal atrial fibrillation
CPT/HCPCS: 36415; 80048

== ENCOUNTER → 2022-01-02 | Outpatient (CLI) | payer MEDICARE ==
--- NOTE | 2022-01-02 10:01 | CT ---
EXAMINATION TYPE: CT chest w con DATE OF EXAM: 01/02/2022 COMPARISON: CT dated 08/16/2021 HISTORY: Lung cancer CT DLP: 595 mGycm Automated exposure control for dose reduction was used. TECHNIQUE: CT scan of the chest is performed with IV Contrast, patient injected with 100 mL of Isovue 300. FINDINGS: LUNGS: The previously seen right infrahilar mass (obstructing the bronchus intermedius and circumfere ntially surrounding it) is smaller today. It is difficult to precisely measure due to adjacent atelec tasis and its infiltrative nature yet it roughly measures 3.2 x 3.4 cm compared to 4.4 x 4.4 cm previ ously. Slightly better aeration of the right middle and lower lobes. Central necrosis/cavity is seen in the right lower lobe. Persistent thick consolidation with air bronchogram involving the right lowe r lobe and middle lobe, infiltrative tumor cannot be excluded. Mild groundglass opacity is also seen at that location. Adjacent pleural fluid. Cardiomediastinal shift to the right side. Unchanged left l antoine with no definite new lung lesion. Minimal infiltration seen at the inferior aspect of the right u pper lobe, otherwise unremarkable right upper lobe. Patent trachea and main bronchi. MEDIASTINUM: Regressing right hilar and mediastinal lymph nodes. For example, a subcarinal lymph node measures 17 mm compared to 22 mm previously. A right hilar lymph node measures 6 mm compared to 14 m m previously. A precarinal retrocaval lymph node measures 6 mm compared to 9 mm previously. The right para-aortic lymph nodes are also smaller measuring up to 6 mm compared to 11 mm previously. No progr essive lymphadenopathy in the chest. Slight cardiomegaly with arterial and coronary atherosclerotic c alcifications. Dilated descending thoracic aorta measuring up to 3.8 cm. The pulmonary trunk measures 3.2 cm. No pericardial effusion. OTHER: Suspected tiny cholelithiasis. Known right adrenal myelolipoma measuring up to 7.2 cm, apprec iated previously. Stable bilateral renal cysts, appreciated previously. No aggressive bone lesion. IMPRESSION: Regressing right lung mass and thoracic lymphadenopathy as detailed above consistent with partial res ponse. No progressive disease identified in the chest. Other interval changes and findings as describ ed above.
== END | disposition home or self-care (01) ==
LOC: RADCTMAIN 08:14
PROVIDERS: ATTEND Internal Medicine Hematology & Oncology
DX: C34.31 Malignant neoplasm of lower lobe, right bronchus or lung (principal); R59.0 Localized enlarged lymph nodes; I25.10 Atherosclerotic heart disease of native coronary artery without angina pectoris; N28.1 Cyst of kidney, acquired
CPT/HCPCS: 82565; 84520; 71260; 36415; Q9967

== ENCOUNTER → 2022-07-18 | Outpatient (CLI) | payer MEDICARE ==
--- NOTE | 2022-07-18 16:50 | CT ---
EXAMINATION TYPE: CT chest w con DATE OF EXAM: 07/18/2022 COMPARISON: 01/02/2022 HISTORY: Lung CA CT DLP: 733 mGycm Automated exposure control for dose reduction was used. CONTRAST: CT scan of the chest is performed with IV Contrast, patient injected with 80cc mL of Isovue 300. FINDINGS: LUNGS: Right infrahilar difficult to measure mass is again noted with an estimated measurement of 3.4 x 3.6 cm versus 3.4 x 3.3 cm previously. There is associated right lower lobe atelectasis and pleura l effusion. Persistent thickening of the bronchus intermedius and right lower lobe bronchus. The over all appearance is stable. No additional pulmonary nodules or masses seen. Hyperinflation left lung ag ain redemonstrated. MEDIASTINUM: 1.4 cm subcarinal adenopathy redemonstrated versus 1.7 cm previously. No additional carolina opathy present. Thoracic aorta is of normal caliber. The heart is not enlarged. Calcified right hilar lymph node. UPPER ABDOMEN: Stable right adrenal myelolipoma. Stable small left nephrolithiasis. Partially imaged right renal cyst. OTHER: No additional significant abnormality is seen. IMPRESSION: 1. Difficult to measure right infrahilar mass appears essentially unchanged although may measure slig htly larger than on prior study. There is persistent right lower lobe atelectasis and/or postobstruct puja pneumonitis. Small right pleural effusion is stable. 2. Persistent subcarinal adenopathy is smaller in size. 3. Adrenal myolipoma. 4. Small calcified cholelithiasis
== END | disposition home or self-care (01) ==
LOC: RADCTMAIN 14:05
PROVIDERS: ATTEND Internal Medicine Hematology & Oncology
DX: J98.11 Atelectasis (principal); K80.20 Calculus of gallbladder without cholecystitis without obstruction; D17.79 Benign lipomatous neoplasm of other sites
CPT/HCPCS: 82565; 84520; 71260; Q9967

== ENCOUNTER → 2023-01-09 | Outpatient (CLI) | payer MEDICARE ==
--- NOTE | 2023-01-12 06:33 | PE ---
EXAMINATION TYPE: PET CT fusion skull to thigh DATE OF EXAM: 01/09/2023 COMPARISON: Prior PET/CT August 23, 2021 HISTORY: Right-sided Lung cancer progress study. Patient completed chemotherapy and radiation treat ment in 2021. TECHNIQUE: Following the intravenous administration of 12.45 mCi of F-18 FDG, whole body images are performed from the skull base to the midthigh. Images are reviewed on the computer in the coronal, a xial, and sagittal planes. Reconstructed rotating images are created on independent workstation and reviewed on the computer. A localization and attenuation correction CT is performed in conjunction with the PET scan. Blood glucose level equals 87. SCAN: Subsequent Scan FINDINGS: SKULL BASE AND NECK: No new areas of abnormal hypermetabolic uptake. CHEST, MEDIASTINUM, AND HILAR REGION: Posttreatment changes to the right lung with right-sided volume loss and consolidation with air bronchograms right lung base is present. There is tiny right-sided p leural fluid collection inferiorly. No residual areas of abnormal hypermetabolic uptake. No new areas of abnormal hypermetabolic uptake. ABDOMEN AND PELVIS: Persistent round right adrenal mass containing fat and soft tissue density measur ing 6.9 cm axial image 130 remains ametabolic. Finding consistent with myolipoma. No new abnormal hyp ermetabolic lesions in the abdomen or pelvis. Normal excretion is present. OSSEOUS STRUCTURES: No new abnormal hypermetabolic uptake. OTHER CT: Mild to moderate calcified plaque bilateral carotid arteries is redemonstrated. Moderate to severe three-vessel coronary artery calcification is redemonstrated. Mild cardiomegaly with atherosc lerotic and ectatic thoracic aorta is redemonstrated. Prominent pulmonary arteries consistent with un derlying pulmonary hypertension. Infrarenal AAA up to 3.3 cm axial image 168. Sigmoid colonic diverticula. Slightly Enlarged prostate consistent with BPH. Adjacent pelvic phleboliths. Multilevel Facet arthropathy in the lumbar spine. S ome dependent density felt to reflect small stones or gallbladder sludge is noted. Some cortical thin brett in simple thin-walled cysts in both kidneys is noted. IMPRESSION: Complete positive treatment response. No residual or new areas of abnormal hypermetabolic uptake on this study to suggest active neoplasm.
== END | disposition home or self-care (01) ==
LOC: RADPETMAIN 09:53
PROVIDERS: ATTEND Internal Medicine Hematology & Oncology
DX: C34.31 Malignant neoplasm of lower lobe, right bronchus or lung (principal)
CPT/HCPCS: 78815; A9552

== ENCOUNTER → 2023-07-10 | Outpatient (CLI) | payer MEDICARE ==
--- NOTE | 2023-07-12 12:03 | PE ---
EXAMINATION TYPE: PET CT fusion skull to thigh DATE OF EXAM: 07/10/2023 CLINICAL INDICATION:Male, 82 years old with history of C34.31 MALIGNANT NEOPLASM OF LOWER LOBE, RIGHT BRONCHUS OR. TECHNIQUE: Following the intravenous administration of 13.5/ mCi of F-18 FDG, whole body images are performed from the skull base to the midthigh. Images are reviewed on the computer in the coronal, axial, and sagittal planes. Reconstructed rotating images are created on independent workstation and reviewed on the computer. A non-contrast CT is performed in conjunction with the PET scan. Glucose level 98 mg/dL CT DLP: 524 mGycm, Automated exposure control for dose reduction was used. COMPARISON: CT 07/18/2022, PET/CT 01/09/2023, 08/23/2021 FINDINGS: Mediastinal SUV mean is by 6. Hepatic parenchyma SUV mean is 2.4. SKULL BASE AND NECK: No suspicious radiotracer activity. CHEST, MEDIASTINUM, AND HILAR REGION: * No suspicious radiotracer activity. * Consolidation changes within the right lung with scattered calcifications. May be trace pleural ef fusion versus pleural thickening. Low-level FDG activity max SUV 3.5, previously 3.0 within this lung likely representing posttreatment posttreatment changes versus atelectasis versus infectious/inflamm atory process. ABDOMEN AND PELVIS: No suspicious radiotracer activity. MUSCULOSKELETAL STRUCTURES: No suspicious radiotracer activity. OTHER CT: Mild to moderate calcified plaque bilateral carotid arteries is similar. Moderate severe co ronary artery calcification is present. Mild cardiomegaly with atherosclerotic and ectatic thoracic a patricia is redemonstrated. Prominent pulmonary arteries consistent with underlying pulmonary hypertensio n. Infrarenal abdominal aorta fusiform aneurysmal dilation up to 3.3 cm axial. Scattered colonic diverti cula. Prostatomegaly. Multilevel Facet arthropathy in the lumbar spine. Some dependent density felt t o reflect small stones or gallbladder sludge is noted. Some cortical thinning in simple thin-walled c ysts in both kidneys is noted. Fat-containing umbilical hernia. Right adrenal myelolipoma measuring up to 8.0 x 7.1 cm previously 6.9 x 6.8 cm. IMPRESSION: No suspicious radiotracer activity. Stable low levels FDG activity within the right lung base likely representing atelectasis and/or infectious/inflammatory process.
== END | disposition home or self-care (01) ==
LOC: RADPETMAIN 10:42
PROVIDERS: ATTEND Internal Medicine Hematology & Oncology
DX: C34.31 Malignant neoplasm of lower lobe, right bronchus or lung (principal); R91.8 Other nonspecific abnormal finding of lung field
CPT/HCPCS: 78815; A9552

== ENCOUNTER 2024-02-15 11:34 | Inpatient (IN) | payer MEDICARE ==
[2024-02-15 12:23] LABS: Basophils # (A) 0.1 k/uL (0-0.2); Basophils % (A) 0 %; Eosinophils # (A) 0.3 k/uL (0-0.7); Eosinophils % (A) 1 %; HCT 38.9 % (39.0-53.0); HGB 12.9 gm/dL (13.0-17.5); Lymphocytes # (A) 1.7 k/uL (1.0-4.8); Lymphocytes % (A) 6 %; MCH 30.6 pg (25.0-35.0); MCHC 33.2 g/dL (31.0-37.0); Monocytes % (A) 4 %; Neutrophils # (A) 22.6 k/uL (1.3-7.7); Neutrophils % (A) 87 %; Platelet Count 246 k/uL (150-450); RBC 4.23 m/uL (4.30-5.90); RDW 14.2 % (11.5-15.5); WBC 25.9 k/uL (3.8-10.6)
[2024-02-15 12:33] LABS: ALT 169 U/L (4-49); African American GFR (CKD) 29 (>60 ml/min/1.73 sqM); Anion Gap 11 mmol/L; Blood Urea Nitrogen 39 mg/dL (9-20); Calcium 9.1 mg/dL (8.4-10.2); Carbon Dioxide 23 mmol/L (22-30); Chloride 101 mmol/L (98-107); Glucose 128 mg/dL (74-99); Non-African American GFR(CKD) 25 (>60 ml/min/1.73 sqM); Sodium 135 mmol/L (137-145); Total Bilirubin 2.2 mg/dL (0.2-1.3)
--- NOTE | 2024-02-15 12:34 | ED ---
General Adult HPI - General Chief complaint: Fall Stated complaint: fall Time Seen by Provider: 02/15/24 12:00 Source: patient, RN notes reviewed, old records reviewed Mode of arrival: ambulatory Limitations: no limitations - History of Present Illness Initial comments: This is an 83-year-old male who presents to the emergency department complaints of having had a fall on Thursday. Patient fell and landed on the abdomen. Patient states since then he found it difficult to eat because he gets nauseous and if he starts to eat. Patient states he also has not been drinking a lot. Patient states the pain is in the upper abdomen and it used to be in the lower chest but it no longer hurts there. Patient denies any difficulty breathing or shortness of breath. Patient states he is a smoker. Patient denies any fever chills or cough. Patient has any back pain. Patient [place] any problems urinating. - Related Data Home Medications Medication Instructions Recorded Confirmed Levothyroxine Sodium [Synthroid] 150 mcg PO DAILY 12/25/16 02/15/24 Tamsulosin [Flomax] 0.4 mg PO DAILY 12/25/16 02/15/24 Aspirin [Adult Low Dose Aspirin EC] 81 mg PO DAILY 08/20/17 02/15/24 Apixaban [Eliquis] 5 mg PO BID 02/15/24 02/15/24 Losartan Potassium 100 mg PO DAILY 02/15/24 02/15/24 Metoprolol Tartrate [Lopressor] 50 mg PO BID 02/15/24 02/15/24 allopurinoL [Zyloprim] 100 mg PO DAILY 02/15/24 02/15/24 Allergies Allergy/AdvReac Type Severity Reaction Status Date / Time No Known Allergies Allergy Verified 02/15/24 14:42 Review of Systems ROS Statement: Those systems with pertinent positive or pertinent negative responses have been documented in the HPI. ROS Other: All systems not noted in ROS Statement are negative. Past Medical History Past Medical History: Diabetes Mellitus, Hypertension, Thyroid Disorder Additional Past Medical History / Comment(s): hemorrhoids, recent fall lt arm scraped and bruised, large mass rt lung, "borderline diabetic" diet controlled History of Any Multi-Drug Resistant Organisms: None Reported Past Surgical History: Heart Catheterization With Stent, Hernia Repair, Tonsillectomy Additional Past Surgical History / Comment(s): "rupture near scrotom", heart stent x2 Past Anesthesia/Blood Transfusion Reactions: No Reported Reaction Date of Last Stent Placement:: 2018 Past Psychological History: No Psychological Hx Reported Smoking Status: Current every day smoker Past Alcohol Use History: None Reported Past Drug Use History: None Reported - Past Family History Mother Family Medical History: No Reported History General Exam - General Exam Comments Initial Comments: GENERAL: Patient is well-developed and well-nourished. Patient is nontoxic and well-hy drated and is in mild distress. ENT: Neck is soft and supple. No significant lymphadenopathy is noted. Oropharynx is clear. Moist mucous membranes. Neck has full range of motion without eliciting any pain. EYES: The sclera were anicteric and conjunctiva were pink and moist. Extraocular movements were intact and pupils were equal round and reactive to light. Eyelids were unremarkable. PULMONARY: Unlabored respirations. Good breath sounds bilaterally. No audible rales rhonchi or wheezing was noted. CARDIOVASCULAR: There is a regular rate and rhythm without any murmurs gallops or rubs. ABDOMEN: Upper abdomen is tender bilaterally there is no point tenderness. SKIN: Skin is clear with no lesions or rashes and otherwise unremarkable. NEUROLOGIC: Patient is alert and oriented x3. Cranial nerves II through XII are grossly intact. Motor and sensory are also intact. Normal speech, volume and content. Symmetrical smile. MUSCULOSKELETAL: Normal extremities with adequate strength and full range of motion. LYMPHATICS: No significant lymphadenopathy is noted PSYCHIATRIC: Normal psychiatric evaluation. Limitations: no limitations Course Vital Signs 02/15/24 02/15/24 02/15/24 11:37 12:44 12:46 Temperature 98 F Pulse Rate 85 70 75 Respiratory 18 18 Rate Blood Pressure 80/47 97/47 O2 Sat by Pulse 94 L 96 Oximetry 02/15/24 02/15/24 02/15/24 12:53 13:00 14:36 Temperature Pulse Rate 76 73 73 Respiratory 20 18 Rate Blood Pressure 72/52 94/60 O2 Sat by Pulse 95 96 Oximetry 02/15/24 16:42 Temperature Pulse Rate 72 Respiratory 18 Rate Blood Pressure 98/65 O2 Sat by Pulse 97 Oximetry Medical Decision Making - Medical Decision Making EKG is interpreted by myself shows a sinus rhythm with occasional PACs at 78 bpm NC interval is 164 QRS is 141 QT interval is 410 QTc is 443. Was pt. sent in by a medical professional or institution (IAN Barr, CERTIFIED LOW VISION THERAPIST, urgent care, hospital, or alf...) When possible be specific @ -No Did you speak to anyone other than the patient for history (EMS, parent, family, police, friend...)? What history was obtained from this source @ -No Did you review nursing and triage notes (agree or disagree)? Why? @ -I reviewed and agree with nursing and triage notes Were old charts reviewed (outside hosp., previous admission, EMS record, old EKG, old radiological studies, urgent care reports/EKG's, alf records)? Report findings @ -I compared patient's CAT scan with the previous chest x-ray and there was a new finding of an infiltrate on the right side. Differential Diagnosis (chest pain, altered mental status, abdominal pain women, abdominal pain men, vaginal bleeding, weakness, fever, dyspnea, syncope, headache, dizziness, GI bleed, back pain, seizure, CVA, palpatations, mental health, musculoskeletal)? @ -Differential Abdominal Pain Men: Appendicitis, cholecystitis, diverticulosis, ischemic bowel, pancreatitis, hepatitis, UTI, gastroenteritis, AAA, incarcerated hernia, bowel obstruction, constipation, inflammatory bowel, hepatitis, peptic ulcer disease, splenic infarction, perforated viscus, testicular torsion, this is not meant to be an all-inclusive list EKG interpreted by me (3pts min.). @ -As above X-rays interpreted by me (1pt min.). @ -None done CT interpreted by me (1pt min.). @ -CT of the chest showed right-sided pneumonia. CT of the abdomen showed myelo lipoma on the adrenal gland with an internal hemorrhage U/S interpreted by me (1pt. min.). @ -None done What testing was considered but not performed or refused? (CT, X-rays, U/S, labs)? Why? @ -None What meds were considered but not given or refused? Why? @ -None Did you discuss the management of the patient with other professionals (professionals i.e. IAN Barr, CERTIFIED LOW VISION THERAPIST, lab, RT, psych nurse, community mental health social worker, manager generation, teacher, environmental health officer, geriatric case manager)? Give summary @ -I spoke with Dr. Manning he agreed to admit the patient I admitted the patient I wrote admitting orders Was smoking cessation discussed for >3mins.? @ -No Was critical care preformed (if so, how long)? @ -No Were there social determinants of health that impacted care today? How? (Homelessness, low income, unemployed, alcoholism, drug addiction, transportation, low edu. Level, literacy, decrease access to med. care, longterm, rehab)? @ -No Was there de-escalation of care discussed even if they declined (Discuss DNR or withdrawal of care, Hospice)? DNR status @ -No What co-morbidities impacted this encounter? (DM, HTN, Smoking, COPD, CAD, Cancer, CVA, ARF, Chemo, Hep., AIDS, mental health diagnosis, sleep apnea, morbid obesity)? @ -None Was patient admitted / discharged? Hospital course, mention meds given and route, prescriptions, significant lab abnormalities, going to OR and other pertinent info. @ -Patient was started on antibiotics for the pneumonia. Patient also had a consult to surgery for the myelolipoma on the adrenal gland. I spoke with Dr. Manning he agreed to admit the patient I admitted the patient and wrote admitting orders Undiagnosed new problem with uncertain prognosis? @ -No Drug Therapy requiring intensive monitoring for toxicity (Heparin, Nitro, Insulin, Cardizem)? @ -No Were any procedures done? @ -No Diagnosis/symptom? @ -Pneumonia Acute, or Chronic, or Acute on Chronic? @ -Acute Uncomplicated (without systemic symptoms) or Complicated (systemic symptoms)? @ -Complicated Side effects of treatment? @ -No Exacerbation, Progression, or Severe Exacerbation? @ -No Poses a threat to life or bodily function? How? (Chest pain, [place], [place], pneumonia, PE, COPD, DKA, ARF, appy, cholecystitis, CVA, Diverticulitis, Homicidal, Tammy cidal, threat to staff... and all critical care pts) @ -Yes this could lead to hypoxia and endorgan dysfunction Diagnosis/symptom? @ -Hemorrhage within myolipoma adrenal Acute, or Chronic, or Acute on Chronic? @ -Acute Uncomplicated (without systemic symptoms) or Complicated (systemic symptoms)? @ -Complicated Side effects of treatment? @ -None Exacerbation, Progression, or Severe Exacerbation] @ -No Poses a threat to life or bodily function? @ -Yes this could lead to further hemorrhage and shock. - Lab Data Result diagrams: 02/15/24 12:07 02/15/24 12:07 Lab Results 02/15/24 02/15/24 02/15/24 Range/Units 12:07 12:07 12:42 WBC 25.9 H (3.8-10.6) k/uL RBC 4.23 L (4.30-5.90) m/uL Hgb 12.9 L (13.0-17.5) gm/dL Hct 38.9 L (39.0-53.0) % MCV 92.0 (80.0-100.0) fL MCH 30.6 (25.0-35.0) pg MCHC 33.2 (31.0-37.0) g/dL RDW 14.2 (11.5-15.5) % Plt Count 246 (150-450) k/uL MPV 9.0 Neutrophils % 87 % Lymphocytes % 6 % Monocytes % 4 % Eosinophils % 1 % Basophils % 0 % Neutrophils # 22.6 H (1.3-7.7) k/uL Lymphocytes # 1.7 (1.0-4.8) k/uL Monocytes # 1.0 (0-1.0) k/uL Eosinophils # 0.3 (0-0.7) k/uL Basophils # 0.1 (0-0.2) k/uL Sodium 135 L (137-145) mmol/L Potassium 4.6 (3.5-5.1) mmol/L Chloride 101 (98-107) mmol/L Carbon Dioxide 23 (22-30) mmol/L Anion Gap 11 mmol/L BUN 39 H (9-20) mg/dL Creatinine 2.37 H (0.66-1.25) mg/dL Est GFR (CKD-EPI)AfAm 29 (>60 ml/min/1.73 sqM) Est GFR (CKD-EPI)NonAf 25 (>60 ml/min/1.73 sqM) Glucose 128 H (74-99) mg/dL Lactic Ac Sepsis Rflx Plasma Lactic Acid Richard 2.3 H* (0.7-2.0) mmol/L Calcium 9.1 (8.4-10.2) mg/dL Magnesium 1.7 (1.6-2.3) mg/dL Total Bilirubin 2.2 H (0.2-1.3) mg/dL AST 95 H (17-59) U/L ALT 169 H (4-49) U/L Alkaline Phosphatase 140 H (38-126) U/L Total Protein 7.2 (6.3-8.2) g/dL Albumin 3.6 (3.5-5.0) g/dL 02/15/24 02/15/24 Range/Units 13:03 15:13 WBC (3.8-10.6) k/uL RBC (4.30-5.90) m/uL Hgb (13.0-17.5) gm/dL Hct (39.0-53.0) % MCV (80.0-100.0) fL MCH (25.0-35.0) pg MCHC (31.0-37.0) g/dL RDW (11.5-15.5) % Plt Count (150-450) k/uL MPV Neutrophils % % Lymphocytes % % Monocytes % % Eosinophils % % Basophils % % Neutrophils # (1.3-7.7) k/uL Lymphocytes # (1.0-4.8) k/uL Monocytes # (0-1.0) k/uL Eosinophils # (0-0.7) k/uL Basophils # (0-0.2) k/uL Sodium (137-145) mmol/L Potassium (3.5-5.1) mmol/L Chloride (98-107) mmol/L Carbon Dioxide (22-30) mmol/L Anion Gap mmol/L BUN (9-20) mg/dL Creatinine (0.66-1.25) mg/dL Est GFR (CKD-EPI)AfAm (>60 ml/min/1.73 sqM) Est GFR (CKD-EPI)NonAf (>60 ml/min/1.73 sqM) Glucose (74-99) mg/dL Lactic Ac Sepsis Rflx Y Plasma Lactic Acid Richard 1.5 (0.7-2.0) mmol/L Calcium (8.4-10.2) mg/dL Magnesium (1.6-2.3) mg/dL Total Bilirubin (0.2-1.3) mg/dL AST (17-59) U/L ALT (4-49) U/L Alkaline Phosphatase (38-126) U/L Total Protein (6.3-8.2) g/dL Albumin (3.5-5.0) g/dL Disposition Clinical Impression: Pneumonia, Fall, Myelolipoma of adrenal gland Disposition: ADMITTED IP TO THIS HOSP Referrals: Kim Howell DO [Primary Care Provider] - 1-2 days Time of Disposition: 16:46
--- NOTE | 2024-02-15 12:41 | XR ---
EXAMINATION TYPE: XR chest 2V DATE OF EXAM: 02/15/2024 12:33 PM CLINICAL INDICATION:Male, 83 years old with history of fall chest wall pain.; [facility] COMPARISON: Chest radiographs from 09/05/2021 TECHNIQUE: XR chest 2V Frontal and lateral views of the chest. FINDINGS: Lungs/Pleura: There is no evidence of focal consolidation, or pneumothorax. Prominent right pericard ial fat pad versus effusion. Appearance is similar to 2010 Pulmonary vascularity: Unremarkable. Heart/mediastinum: Cardiomediastinal silhouette is unremarkable. Musculoskeletal: No acute osseous pathology. Other findings: None Lines/Tubes: IMPRESSION: No definite radiographic evidence of acute cardiopulmonary disease/process. Persistent findings at right lung base most likely represent chronic process or moderate right perica rdial fat.
[2024-02-15 12:43] LABS: Total Protein 7.2 g/dL (6.3-8.2)
[2024-02-15 12:44] LABS: AST 95 U/L (17-59); Albumin 3.6 g/dL (3.5-5.0); Alkaline Phosphatase 140 U/L (38-126); Potassium 4.6 mmol/L (3.5-5.1)
[2024-02-15] MEDS: IPRATROPIUM-ALBUTEROL 3 ML NEB INHALATION STA (12:46)
[2024-02-15 13:17] LABS: Magnesium 1.7 mg/dL (1.6-2.3)
--- NOTE | 2024-02-15 15:36 | CT ---
EXAMINATION TYPE: CT Chest Abd Pelvis wo con CT DLP: 736.1 mGycm, Automated exposure control for dose reduction was used. DATE OF EXAM: 02/15/2024 1:54 PM COMPARISON: None. CLINICAL INDICATION:Male, 83 years old with history of Trauma; PHH, RUQ pain after fall x a few days. Technique: CT Chest Abd Pelvis wo con; Multiple axial images were obtained. Two-dimensional coronal a nd sagittal reconstructions were obtained. Contrast used: mL of , Oral contrast used: without Oral Contrast Findings: CHEST: LUNGS/ PLEURA: Pulmonary contusion versus pneumonia in the posterior medial right lung base AIRWAY: Patent and unremarkable. HEART: Size within normal limits. MEDIASTINUM: No gross evidence of adenopathy. VASCULATURE: No aortic aneurysm. MUSCULOSKELETAL: No acute osseous abnormalities. SOFT TISSUES/LYMPH NODES: Calcified right hilar lymph node. LOWER NECK: No significant findings. ABDOMEN: ABDOMEN LIVER: Unremarkable GALLBLADDER AND BILE DUCTS: Tiny choleliths and sludge PANCREAS: Unremarkable. SPLEEN: Unremarkable. ADRENAL GLANDS: Large 7.8 cm fatty right adrenal myelolipoma. Suspect there is some acute hemorrhage in the myelolipoma. Left adrenal unremarkable. KIDNEYS AND URETERS: No evidence of hydronephrosis or renal calculus. The ureters are unremarkable. PELVIS BLADDER: Unremarkable REPRODUCTIVE: Unremarkable. ABDOMEN & PELVIS STOMACH AND BOWEL: Normal caliber and appearance of small bowel. No evidence of bowel obstruction. PERITONEUM: No evidence of pneumoperitoneum or free fluid. VASCULATURE: No evidence of aortic aneurysm. MUSCULOSKELETAL: No acute osseous abnormalities LYMPH NODES: No gross evidence for lymphadenopathy. SOFT TISSUE/ABDOMINAL WALL: Unremarkable IMPRESSION: Suspect there is some acute hemorrhage in the myelolipoma. Pulmonary contusion and/or pneumonia right lung base. Called report to ER physician. Dr. King at 3:27, February 15, 2024. Follow up surgery consult for possible acute hemorrhage into right adrenal myelolipoma. Additional findings: Tiny choleliths and sludge
[2024-02-15] MEDS: cefTRIAXone IN SWFI 1,000 MG/10 ML SYRINGE IVP STA ×2 (16:43→16:44)
[2024-02-15] MEDS ORDERED: PNEUMONIA PROTOCOL UTILIZED 1 EACH MISC PO PRN (16:50)
[2024-02-15] MEDS ORDERED: IPRATROPIUM-ALBUTEROL 3 ML NEB INHALATION PRN (16:57)
[2024-02-15] MEDS: methylPREDNISolone SOD SUCCI 125 MG/2 ML VIAL IV STA (18:35)
[2024-02-15] MEDS: PIPERACILLIN-TAZOBACTAM 3.375 GM in SODIUM CHLORIDE 0.9% 100 ML IVPB STA (18:38)
[2024-02-15] MEDS: SODIUM CHLORIDE 0.9% 1,000 ML IV ONE (20:33)
[2024-02-15] MEDS: methylPREDNISolone SOD SUCCI 125 MG/2 ML VIAL IV SCH (23:10)
[2024-02-16] MEDS ORDERED: ONDANSETRON 4 MG/2 ML VIAL IVP PRN (00:26)
[2024-02-16] MEDS: PIPERACILLIN-TAZOBACTAM 3.375 GM in SODIUM CHLORIDE 0.9% 100 ML IVPB SCH (02:09)
--- NOTE | 2024-02-16 04:00 | P.CNPUL ---
History of Present Illness Consult date: 02/16/24 Requesting physician: Jacob King Reason for consult: pneumonia Chief complaint: Fall, nausea and vomiting, abdominal pain History of present illness: Patient is a 83-year-old white male with past medical history significant for squamous cell lung carcinoma originally diagnosed back in 2020 status post chemo/radiation, COPD, ongoing tobacco dependence, coronary artery disease with previous PCI/stent, hypertension, BPH, hypothyroidism, and gout. As stated above, patient does have history of advanced squamous cell lung cancer with subcarinal lymph node involvement. Patient is status post chemo and radiation. Patient does follow up with his oncologist, which I believe is Dr. Ann. Patient presented to the emergency room yesterday afternoon after having a fall on Thursday. He tripped over his cat, landed on a box fan. Most of the impact hit his abdominal area. Denies landing on his side or hitting his head. Since then, he has had some mild bandlike abdominal tenderness. He also reports nausea and vomiting with eating. He has not been eating and drinking a lot because he c annot keep anything down. 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 Image was also read as suspected pulmonary contusion and/or pneumonia at the right lung base. I reviewed the CAT scan myself and compared to previous PET scan. This consolidation and right lung volume loss appears to be consistent with the patient's known lung mass. He is currently in the emergency department, room 20. He is lying in bed, on room air , in no acute distress. SpO2 is 93 to 94%. Patient states that he never hit his chest or head when falling. Denies any right-sided chest pain. Nontender to palpation. No associated crepitus or ecchymosis. He does report some tenderness in the right upper abdominal quadrant. Does report nausea and vomiting over the last 4 days. Associated with eating. Emesis described as brown mixed with food. Denies hematemesis. No diarrhea. Denies rose blood in bowel movements. Denies melena. Denies any infectious pulmonary symptoms such as shortness of breath different from his baseline, change in his chronic cough, significant sputum production, hemoptysis, fevers or chills. CBC does show some leukocytosis with a WBC count of 25.9, hemoglobin 12.9, hematocrit 38.9, platelets 246. BMP on arrival: Sodium 135, potassium 4.6, chloride 101, serum bicarb 23, BUN 39, creatinine 2.37, glucose 128. Lactic acid level 2.3 down to 1.5. LFTs mildly elevated. Total bilirubin 2.2. Overall vital signs are stable. Review of Systems REVIEW OF SYSTEMS: CONSTITUTIONAL: Denies any recent significant weight loss or weight gain. EYES: Denies change in vision. EARS, NOSE, MOUTH, THROAT: Denies headaches, denies sore throat. CARDIOVASCULAR: Denies chest pain, palpitations or syncopal episodes. RESPIRATORY: See HPI GASTROINTESTINAL: See HPI GENITOURINARY: Denies hematuria, denies infections. MUSKULOSKELETAL: Denies pain, denies swelling. INTEGUMENTARY: Denies rash, denies eczema. NEUROLOGICAL: Denies recent memory loss, no recent seizure activity. PSYCHIATRIC: Denies anxiety, denies depression. HEMATOLOGIC/LYMPHATIC: Denies anemia, denies enlarged lymph node Past Medical History Past Medical History: Diabetes Mellitus, Hypertension, Thyroid Disorder Additional Past Medical History / Comment(s): hemorrhoids, recent fall lt arm scraped and bruised, large mass rt lung, "borderline diabetic" diet controlled History of Any Multi-Drug Resistant Organisms: None Reported Past Surgical History: Heart Catheterization With Stent, Hernia Repair, Tonsill ectomy Additional Past Surgical History / Comment(s): "rupture near scrotom", heart stent x2 Past Anesthesia/Blood Transfusion Reactions: No Reported Reaction Date of Last Stent Placement:: 2018 Past Psychological History: No Psychological Hx Reported Smoking Status: Current every day smoker Past Alcohol Use History: None Reported Past Drug Use History: None Reported - Past Family History Mother Family Medical History: No Reported History Medications and Allergies Home Medications Medication Instructions Recorded Confirmed Type Levothyroxine Sodium [Synthroid] 150 mcg PO DAILY 12/25/16 02/15/24 History Tamsulosin [Flomax] 0.4 mg PO DAILY 12/25/16 02/15/24 History Aspirin [Adult Low Dose Aspirin EC] 81 mg PO DAILY 08/20/17 02/15/24 History Apixaban [Eliquis] 5 mg PO BID 02/15/24 02/15/24 History Losartan Potassium 100 mg PO DAILY 02/15/24 02/15/24 History Metoprolol Tartrate [Lopressor] 50 mg PO BID 02/15/24 02/15/24 History allopurinoL [Zyloprim] 100 mg PO DAILY 02/15/24 02/15/24 History Allergies Allergy/AdvReac Type Severity Reaction Status Date / Time No Known Allergies Allergy Verified 02/15/24 14:42 Physical Exam Vitals: Vital Signs Temp Pulse Resp BP Pulse Ox 02/16/24 02:11 91 18 101/65 93 L 02/16/24 01:09 76 18 116/69 94 L 02/15/24 23:41 78 20 112/63 94 L 02/15/24 22:05 82 18 119/65 96 02/15/24 21:08 78 18 102/62 94 L 02/15/24 20:15 95 02/15/24 18:40 98.1 F 71 18 100/67 97 02/15/24 16:42 72 18 98/65 97 02/15/24 14:36 73 18 94/60 96 02/15/24 13:00 73 20 72/52 95 02/15/24 12:53 76 02/15/24 12:46 75 02/15/24 12:44 70 18 97/47 96 02/15/24 11:37 98 F 85 18 80/47 94 L Intake and Output 02/15/24 02/15/24 02/16/24 14:59 22:59 06:59 Other: Weight 90.718 kg GENERAL EXAM: Alert, 83-year-old white male, comfortable in no apparent distr ess. HEAD: Normocephalic and atraumatic EYES: Normal reaction of pupils, equal size. NOSE: Clear with pink turbinates. THROAT: No erythema or exudates. NECK: No masses, no JVD. CHEST: No obvious chest wall deformity or crepitus or ecchymosis LUNGS: Diminished right lower lobe lung sounds with scattered expiratory wheezes, greater on the left. On room air. No conversational dyspnea or accessory muscle use.. CVS: S1 and S2 normal with no audible murmur, regular rhythm. No extra heart sounds ABDOMEN: No hepatosplenomegaly, active bowel sounds, no guarding or rigidity. SPINE: No scoliosis or deformity SKIN: No rashes CENTRAL NERVOUS SYSTEM: No focal deficits, tone is normal in all 4 extremities. EXTREMITIES: There is no peripheral edema, clubbing, or cyanosis. Peripheral pulses are intact. Results - Laboratory Findings CBC and BMP: 02/15/24 12:07 02/15/24 12:07 Abnormal lab findings: Abnormal Labs 02/15/24 02/15/24 02/15/24 12:07 12:07 12:42 WBC 25.9 H RBC 4.23 L Hgb 12.9 L Hct 38.9 L Neutrophils # 22.6 H Sodium 135 L BUN 39 H Creatinine 2.37 H Glucose 128 H Plasma Lactic Acid Richard 2.3 H* Total Bilirubin 2.2 H AST 95 H ALT 169 H Alkaline Phosphatase 140 H - Diagnostic Findings Chest x-ray: image reviewed CT scan - chest: image reviewed Assessment and Plan Assessment: Fall Abdominal pain, with associated nausea and vomiting, CT of the chest, abdomen, and pelvis without contrast was done which showed a soft tissue density as well as a nodular 1 cm focus within the fatty tumor, possibly adrenal myolipoma, unchanged from previous imaging, in addition there was fullness of the gallbladder with cholelithiasis and some haziness. Abdominal ultrasound pending. Right adrenal mass, possible adrenal myelolipoma History of non-small cell lung carcinoma, originally diagnosed back in 2020, status post chemo and radiation. CT scan results from this admission identified a right lung consolidation with volume loss of the likely consistent with the patient's prior history of lung cancer and treatment changes. Superimposed obstructive pneumonia not completely excluded at this time. Pulmonary contusion felt to be less likely. Mild acute COPD exacerbation, findings at the right lung base most likely represent chronic process, secondary to above. Acute leukocytosis, covered empirically on empiric antibiotics Mild transaminitis, rule out acute abdominal process versus trauma Severe dehydration Acute kidney injury, possibly secondary to above and ATN Chronic ongoing tobacco dependence, continues to smoke 3/4 to 1 pack/day History of coronary artery disease History of hypertension History of hypothyroidism History of benign prostatic hyperplasia History of gout Plan: Patient's medications, labs, imaging reviewed Patient is on room air Continue as needed DuoNebs Patient was empirically covered on Zosyn in the emergency room. Chest CT findings appear to be chronic. Sputum and blood cultures pending. Check procalcitonin level. Obtain ultrasound of the gallbladder Add as needed Zofran for antiemetic General surgery also asked to see this patient for evaluation Smoking cessation counseling performed. Nicotine replacement offered. We will continue to follow, and additional recommendations are forthcoming. I have personally seen and examined the patient, performed the documentation and the assessment and plan as written. Number of minutes spent on the visit:20 Time with Patient: Greater than 30
[2024-02-16] MEDS: NICOTINE 21MG/24HR PATCH TRANSDERM SCH (09:43)
--- NOTE | 2024-02-16 10:11 | XR ---
EXAMINATION TYPE: XR chest 1V portable DATE OF EXAM: 02/16/2024 Comparison: 02/15/2024 Clinical History: 83-year-old male pneumonia Findings: The heart is enlarged. Similar to slightly worsening volume loss right hemithorax and continued retic ular basilar opacity. Mild interstitial density on the left may be increased as well now. Bilateral c hronic clavicular shaft fracture deformities. Impression: 1. Similar cardiomegaly. Asymmetric volume loss in the right hemithorax may be slightly increased. 2. There is ongoing small right pleural effusion with adjacent atelectasis and consolidation. 3. Interstitial density on the left may be slightly increased. Correlate to exclude early pulmonary v ascular congestion.
--- NOTE | 2024-02-16 10:20 | US ---
EXAMINATION TYPE: US abdomen complete DATE OF EXAM: 02/16/2024 COMPARISON: CT 02/15/2024 CLINICAL INDICATION: Male, 83 years old with history of RUQ abdominal pain; rule out cholecystitis; H x renal adrenal lesion. TECHNIQUE: Multiple sonographic images of the abdomen are obtained. FINDINGS: EXAM MEASUREMENTS: Liver Length: 17.4 cm Gallbladder Wall: 0.2 cm CBD: 0.6 cm Spleen: 10.1 cm Right Kidney: 10.3 x 4.6 x 5.7 cm Left Kidney: 9.9 x 4.4 x 5.5 cm Pancreas: Tail obscured by overlying bowel gas, echogenic in appearance Liver: Possible subtle contour nodularity. Slightly heterogeneous in appearance. Gallbladder: Small mobile stones seen. No sludge visualized at time of scan. No wall thickening. Enlarged in size. Evidence for sonographic Stone's sign: neg CBD: wnl Spleen: Echogenic foci seen within Right Kidney: Mid to lower pole cyst measuring 1.6 cm. Posterior upper pole cyst measuring 2.2 cm. R ight adrenal echogenic mass measuring 8.9 x 7.9 x 7.8 cm corresponding to known myelolipoma. Left Kidney: No hydronephrosis or masses seen. Heterogenous lobular renal cortex. Upper IVC: Obscured by overlying bowel gas Abd Aorta: Distal aortic aneurysm = 3.2 cm. IMPRESSION: 1. Borderline to mildly hydropic gallbladder with some layering stones. No wall thickening or sonogra phic Stone sign to indicate acute cholecystitis at this time. 2. Bile duct caliber of 6 mm is normal for patient's age. 3. Possible subtle contour nodularity of the liver with slightly heterogeneous appearance. Correlate for underlying nonspecific hepatocellular disease. 4. 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 5. Distal AAA at 3.2 cm.
[2024-02-16 11:35] LABS: Glucose,Whole Blood 160 mg/dL (70-110)
[2024-02-16] MEDS ORDERED: DEXTROSE 50% SYRINGE 50 ML IVP PRN ×2 (11:46)
[2024-02-16 12:42] LABS: Basophils % (A) 0 %; Eosinophils # (A) 0.1 k/uL (0-0.7); Eosinophils % (A) 0 %; HCT 39.3 % (39.0-53.0); HGB 12.3 gm/dL (13.0-17.5); Lymphocytes # (A) 1.1 k/uL (1.0-4.8); Lymphocytes % (A) 5 %; MCH 29.8 pg (25.0-35.0); MCHC 31.4 g/dL (31.0-37.0); MCV 94.7 fL (80.0-100.0); Monocytes # (A) 0.4 k/uL (0-1.0); Monocytes % (A) 2 %; Neutrophils # (A) 21.7 k/uL (1.3-7.7); Neutrophils % (A) 93 %; Platelet Count 254 k/uL (150-450); RBC 4.15 m/uL (4.30-5.90); RDW 13.7 % (11.5-15.5); WBC 23.4 k/uL (3.8-10.6)
[2024-02-16 12:50] LABS: ALT 105 U/L (4-49); AST 44 U/L (17-59); African American GFR (CKD) 25 (>60 ml/min/1.73 sqM); Albumin 3.4 g/dL (3.5-5.0); Alkaline Phosphatase 136 U/L (38-126); Anion Gap 14 mmol/L; Blood Urea Nitrogen 58 mg/dL (9-20); Calcium 9.5 mg/dL (8.4-10.2); Carbon Dioxide 20 mmol/L (22-30); Chloride 106 mmol/L (98-107); Glucose 154 mg/dL (74-99); Non-African American GFR(CKD) 21 (>60 ml/min/1.73 sqM); Sodium 140 mmol/L (137-145); Total Bilirubin 0.7 mg/dL (0.2-1.3); Total Protein 6.9 g/dL (6.3-8.2)
[2024-02-16] MEDS ORDERED: allopurinoL 100 MG TAB PO SCH (13:15)
[2024-02-16] MEDS ORDERED: NON FORMULARY DRUG (Losartan Potassium [Losartan Potassium] 100 MG Tablet) PO SCH (13:15)
[2024-02-16] MEDS: APIXABAN 2.5 MG TABLET PO SCH (13:21)
[2024-02-16] MEDS: TAMSULOSIN 0.4 MG CAP.ER.24H PO SCH (13:21)
[2024-02-16] MEDS: ASPIRIN 81 MG PO SCH (13:21)
[2024-02-16] MEDS: METOPROLOL TARTRATE 50 MG TAB PO SCH (13:21)
[2024-02-16] MEDS: LEVOTHYROXINE 75 MCG TAB PO SCH (13:21)
--- NOTE | 2024-02-16 13:36 | P.GSCN ---
History of Present Illness Consult date: 02/16/24 History of present illness: CHIEF COMPLAINT: Fall HISTORY OF PRESENT ILLNESS: This is a 83-year-old male who was seen in the emergency room. He had a fall last Thursday landing on the abdomen. At that time he did have nausea. He reports the pain is across the lower abdomen. Pain has now resolved. He denies any nausea or vomiting. He reports he has been having bowel movements and flatus. Denies any difficulty urinating. He is on Eliquis for his A-fib. The CT scan of the chest abdomen and pelvis were completed that had reported a adrenal myelo lipoma remained unchanged from June 2023. Also reported fullness of gallbladder with gallstones and some haziness. Possible subtle densities in the distal bile duct. Patient did have elevated total bilirubin and LFTs. Leukocytosis present. Past surgical history includes hernia repair. PAST MEDICAL HISTORY: Lung cancer 2020 status post chemoradiation, Diabetes Mellitus, Hypertension, Thyroid Disorder, CAD PAST SURGICAL HISTORY: Heart Catheterization With Stent, Hernia Repair, Tonsillectomy MEDICATIONS: See below ALLERGIES: See below SOCIAL HISTORY: No illicit drug use. Nicotine dependence REVIEW OF SYSTEMS: CONSTITUTIONAL: Denies fever or chills. HEENT: Denies blurred vision, vision changes, or eye pain. Denies hemoptysis CARDIOVASCULAR: Denies chest pain or pressure. RESPIRATORY: No shortness of breath. GASTROINTESTINAL: See HPI for pertinent findings HEMATOLOGIC: Denies bleeding disorders. GENITOURINARY: Denies any blood in urine or increased urinary frequency. SKIN: Denies pruitis. Denies rash. PHYSICAL EXAM: VITAL SIGNS: Reviewed GENERAL: Well-developed in no acute distress. HEENT: No sclera icterus. Extraocular movements grossly intact. Moist buccal mucosa. Head is atraumatic, normocephalic. No nasal drainage. ABDOMEN: Soft. Nondistended. Nontender NEUROLOGIC: Alert and oriented. Cranial nerves II through XII grossly intact. LABORATORY DATA: WBC 25 Hgb 12.9 platelets 246 Sodium is 135 potassium 4.6 creatinine 2.37 Lactic acid 2.3 down to 1.5 Total bilirubin 2.2 AST 95 ALT 169 alk phos 140 IMAGING: CT scan abdomen and pelvis reported adrenal myolipoma on the right unchanged. Fullness of the gallbladder with cholelithiasis and haziness possible subtle densities in the distal bile duct. Abdominal ultrasound ultrasound reports borderline to mildly hydropic gallbladder with some layering stones. No wall thickening or Stone sign to indicate acute cholecystitis. Bile duct caliber 6 mm normal for patient's age. Subtle contour nodularity of the liver slightly heterogeneous appearance correlate for nonspecific hepatocellular disease. 8.9 cm right adrenal myelo lipoma known. And distal AAA at 3.2 cm. ASSESSMENT: 1. Lower abdominal pain after a fall 2. Right adrenal gland myelolipoma unchanged per CT 3. Hydropic gallbladder with gallstones noted on ultrasound 4. Elevated liver enzymes and total bilirubin 5. Leukocytosis PLAN: -Continue to monitor. Abdominal pain resolved. -Urology consulted for right adrenal gland myelolipoma -Recommend low-fat diet -Repeat LFTs in AM -Continue antibiotics Physician Club [employer] Att[employer] note has been reviewed by physician. Signing provider agrees with the documented findings, assessment, and plan of care. Past Medical History Past Medical History: Diabetes Mellitus, Hypertension, Thyroid Disorder Additional Past Medical History / Comment(s): hemorrhoids, recent fall lt arm scraped and bruised, large mass rt lung, "borderline diabetic" diet controlled History of Any Multi-Drug Resistant Organisms: None Reported Past Surgical History: Heart Catheterization With Stent, Hernia Repair, Tonsillectomy Additional Past Surgical History / Comment(s): "rupture near scrotom", heart stent x2 Past Anesthesia/Blood Transfusion Reactions: No Reported Reaction Date of Last Stent Placement:: 2018 Past Psychological History: No Psychological Hx Reported Smoking Status: Current every day smoker Past Alcohol Use History: None Reported Past Drug Use History: None Reported - Past Family History Mother Family Medical History: No Reported History Medications and Allergies Home Medications Medication Instructions Recorded Confirmed Type Levothyroxine Sodium [Synthroid] 150 mcg PO DAILY 12/25/16 02/15/24 History Tamsulosin [Flomax] 0.4 mg PO DAILY 12/25/16 02/15/24 History Aspirin [Adult Low Dose Aspirin EC] 81 mg PO DAILY 08/20/17 02/15/24 History Apixaban [Eliquis] 5 mg PO BID 02/15/24 02/15/24 History Losartan Potassium 100 mg PO DAILY 02/15/24 02/15/24 History Metoprolol Tartrate [Lopressor] 50 mg PO BID 02/15/24 02/15/24 History allopurinoL [Zyloprim] 100 mg PO DAILY 02/15/24 02/15/24 History Allergies Allergy/AdvReac Type Severity Reaction Status Date / Time No Known Allergies Allergy Verified 02/15/24 14:42 Surgical - Exam Vital Signs Temp Pulse Resp BP Pulse Ox 98 F 85 18 80/47 94 L 02/15/24 11:37 02/15/24 11:37 02/15/24 11:37 02/15/24 11:37 02/15/24 11:37 Results - Labs 02/16/24 11:49 02/16/24 11:49 Abnormal Lab Results - Last 24 Hours (Table) 02/15/24 02/15/24 02/15/24 Range/Units 12:07 12:07 12:42 WBC 25.9 H (3.8-10.6) k/uL RBC 4.23 L (4.30-5.90) m/uL Hgb 12.9 L (13.0-17.5) gm/dL Hct 38.9 L (39.0-53.0) % Neutrophils # 22.6 H (1.3-7.7) k/uL Sodium 135 L (137-145) mmol/L BUN 39 H (9-20) mg/dL Creatinine 2.37 H (0.66-1.25) mg/dL Glucose 128 H (74-99) mg/dL Plasma Lactic Acid Richard 2.3 H* (0.7-2.0) mmol/L Total Bilirubin 2.2 H (0.2-1.3) mg/dL AST 95 H (17-59) U/L ALT 169 H (4-49) U/L Alkaline Phosphatase 140 H (38-126) U/L Procalcitonin (0.02-0.09) ng/mL 02/16/24 Range/Units 00:26 WBC (3.8-10.6) k/uL RBC (4.30-5.90) m/uL Hgb (13.0-17.5) gm/dL Hct (39.0-53.0) % Neutrophils # (1.3-7.7) k/uL Sodium (137-145) mmol/L BUN (9-20) mg/dL Creatinine (0.66-1.25) mg/dL Glucose (74-99) mg/dL Plasma Lactic Acid Richard (0.7-2.0) mmol/L Total Bilirubin (0.2-1.3) mg/dL AST (17-59) U/L ALT (4-49) U/L Alkaline Phosphatase (38-126) U/L Procalcitonin 7.78 H (0.02-0.09) ng/mL Diabetes panel 02/15/24 Range/Units 12:07 Sodium 135 L (137-145) mmol/L Potassium 4.6 (3.5-5.1) mmol/L Chloride 101 (98-107) mmol/L Carbon Dioxide 23 (22-30) mmol/L BUN 39 H (9-20) mg/dL Creatinine 2.37 H (0.66-1.25) mg/dL Glucose 128 H (74-99) mg/dL Calcium 9.1 (8.4-10.2) mg/dL AST 95 H (17-59) U/L ALT 169 H (4-49) U/L Alkaline Phosphatase 140 H (38-126) U/L Total Protein 7.2 (6.3-8.2) g/dL Albumin 3.6 (3.5-5.0) g/dL Calcium panel 02/15/24 Range/Units 12:07 Calcium 9.1 (8.4-10.2) mg/dL Albumin 3.6 (3.5-5.0) g/dL Pituitary panel 02/15/24 Range/Units 12:07 Sodium 135 L (137-145) mmol/L Potassium 4.6 (3.5-5.1) mmol/L Chloride 101 (98-107) mmol/L Carbon Dioxide 23 (22-30) mmol/L BUN 39 H (9-20) mg/dL Creatinine 2.37 H (0.66-1.25) mg/dL Glucose 128 H (74-99) mg/dL Calcium 9.1 (8.4-10.2) mg/dL Adrenal panel 02/15/24 Range/Units 12:07 Sodium 135 L (137-145) mmol/L Potassium 4.6 (3.5-5.1) mmol/L Chloride 101 (98-107) mmol/L Carbon Dioxide 23 (22-30) mmol/L BUN 39 H (9-20) mg/dL Creatinine 2.37 H (0.66-1.25) mg/dL Glucose 128 H (74-99) mg/dL Calcium 9.1 (8.4-10.2) mg/dL Total Bilirubin 2.2 H (0.2-1.3) mg/dL AST 95 H (17-59) U/L ALT 169 H (4-49) U/L Alkaline Phosphatase 140 H (38-126) U/L Total Protein 7.2 (6.3-8.2) g/dL Albumin 3.6 (3.5-5.0) g/dL
[2024-02-16] MEDS: IPRATROPIUM-ALBUTEROL 3 ML NEB INHALATION SCH (13:54)
--- NOTE | 2024-02-16 13:54 | P.CONS ---
History of Present Illness - Reason for Consult Consult date: 02/16/24 History of lung cancer - Chief Complaint Abdominal pain - History of Present Illness Mr. 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 He noted this occurred after tripping over his cat and landing on his right side on a fan. He had some nausea without any vomiting, diarrhea, rash, fevers, chills, cough, or dyspnea. Given the persistent abdominal discomfort, he presented to the ED for additional management recommendations. He was noted to be hypotensive on initial presentation with blood pressure 72/52 that responded to IV fluids. Labs are notable for neutrophilic leukocytosis with WBC 25.9 (ANC 22.6), creatinine 2.37, BUN 39, AST 95, ALT 169, alkaline phosphatase 140, total bilirubin 2.2. CT chest/abdomen/pelvis on admission revealed unchanged adrenal myolipoma with distal bile duct densities concerning for choledocholithiasis versus acute cholecystitis. He was started on Zosyn along with methylprednisolone and was admitted for further management. Review of Systems 14 point review of systems was conducted with pertinent positives and negatives as noted per HPI Past Medical History Past Medical History: Diabetes Mellitus, Hypertension, Thyroid Disorder Additional Past Medical History / Comment(s): hemorrhoids, recent fall lt arm scraped and bruised, large mass rt lung, "borderline diabetic" diet controlled History of Any Multi-Drug Resistant Organisms: None Reported Past Surgical History: Heart Catheterization With Stent, Hernia Repair, Tonsillectomy Additional Past Surgical History / Comment(s): "rupture near scrotom", heart stent x2 Past Anesthesia/Blood Transfusion Reactions: No Reported Reaction Date of Last Stent Placement:: 2018 Past Psychological History: No Psychological Hx Reported Smoking Status: Current every day smoker Past Alcohol Use History: None Reported Past Drug Use History: None Reported - Past Family History Mother Family Medical History: No Reported History Medications and Allergies Home Medications Medication Instructions Recorded Confirmed Type Levothyroxine Sodium [Synthroid] 150 mcg PO DAILY 12/25/16 02/15/24 History Tamsulosin [Flomax] 0.4 mg PO DAILY 12/25/16 02/15/24 History Aspirin [Adult Low Dose Aspirin EC] 81 mg PO DAILY 08/20/17 02/15/24 History Apixaban [Eliquis] 5 mg PO BID 02/15/24 02/15/24 History Losartan Potassium 100 mg PO DAILY 02/15/24 02/15/24 History Metoprolol Tartrate [Lopressor] 50 mg PO BID 02/15/24 02/15/24 History allopurinoL [Zyloprim] 100 mg PO DAILY 02/15/24 02/15/24 History Allergies Allergy/AdvReac Type Severity Reaction Status Date / Time No Known Allergies Allergy Verified 02/15/24 14:42 Physical Exam Vitals: Vital Signs Temp Pulse Pulse Resp BP BP Pulse Ox 02/16/24 12:00 97.5 F L 79 18 119/67 92 L 02/16/24 11:16 78 18 106/65 100 02/16/24 06:24 76 18 111/67 94 L 02/16/24 03:55 86 18 107/72 93 L 02/16/24 02:11 91 18 101/65 93 L 02/16/24 01:09 76 18 116/69 94 L 02/15/24 23:41 78 20 112/63 94 L 02/15/24 22:05 82 18 119/65 96 02/15/24 21:08 78 18 102/62 94 L 02/15/24 20:15 95 02/15/24 18:40 98.1 F 71 18 100/67 97 02/15/24 16:42 72 18 98/65 97 02/15/24 14:36 73 18 94/60 96 Intake and Output 02/15/24 02/16/24 02/16/24 22:59 06:59 14:59 Intake Total 462 Balance 462 Intake: Oral 462 Other: # Voids 1 Weight 90.718 kg - Constitutional General appearance: cooperative, no acute distress - EENT Eyes: EOMI - Respiratory Respiratory: bilateral: wheezing (End expiratory wheezing bilaterally) - Cardiovascular Rhythm: regular - Gastrointestinal General gastrointestinal: distended, soft, tenderness Localized gastrointestinal: tender: RUQ - Integumentary Integumentary: no rash - Neurologic Neurologic: CNII-XII intact Results CBC & Chem 7: 02/16/24 11:49 02/16/24 11:49 Labs: Abnormal Lab Results - Last 24 Hours (Table) 02/16/24 02/16/24 02/16/24 Range/Units 00:26 11:34 11:49 WBC (3.8-10.6) k/uL RBC (4.30-5.90) m/uL Hgb (13.0-17.5) gm/dL Neutrophils # (1.3-7.7) k/uL Carbon Dioxide 20 L (22-30) mmol/L BUN 58 H (9-20) mg/dL Creatinine 2.69 H (0.66-1.25) mg/dL Glucose 154 H (74-99) mg/dL POC Glucose (mg/dL) 160 H (70-110) mg/dL ALT 105 H (4-49) U/L Alkaline Phosphatase 136 H (38-126) U/L Albumin 3.4 L (3.5-5.0) g/dL Procalcitonin 7.78 H (0.02-0.09) ng/mL 02/16/24 Range/Units 11:49 WBC 23.4 H (3.8-10.6) k/uL RBC 4.15 L (4.30-5.90) m/uL Hgb 12.3 L (13.0-17.5) gm/dL Neutrophils # 21.7 H (1.3-7.7) k/uL Carbon Dioxide (22-30) mmol/L BUN (9-20) mg/dL Creatinine (0.66-1.25) mg/dL Glucose (74-99) mg/dL POC Glucose (mg/dL) (70-110) mg/dL ALT (4-49) U/L Alkaline Phosphatase (38-126) U/L Albumin (3.5-5.0) g/dL Procalcitonin (0.02-0.09) ng/mL Assessment and Plan (1) Stage III squamous cell carcinoma of right lung Current Visit: Yes Status: Chronic Code(s): C34.91 - MALIGNANT NEOPLASM OF UNSP PART OF RIGHT BRONCHUS OR LUNG SNOMED Code(s): 600541049 (2) Abdominal pain Current Visit: Yes Status: Acute Code(s): R10.9 - UNSPECIFIED ABDOMINAL PAIN SNOMED Code(s): 49934224 Plan: #Abdominal pain -Noted to be persistent in the right upper quadrant after mechanical fall -CT chest/abdomen/pelvis on admission noted distal bile duct densities concerning for choledocholithiasis versus acute cholecystitis -There is hyperbilirubinemia along with mild transaminitis -Surgery team has been consulted with regards to potential surgical intervention and would defer to them regarding surgical management #Stage IIIB squamous cell carcinoma of the right lower lobe -Treated with concurrent chemoradiotherapy in 2021 followed by 1 year of consolidative durvalumab monthly that was completed on 12/23/2022 -PET scan in June 2023 revealed no evidence of disease recurrence -Staging CT scans on admission revealed no evidence of disease recurrence or metastasis -No further interventions are required from an oncology perspective -We will arrange follow up in clinic around the time of discharge Poornima Ann MD
--- NOTE | 2024-02-16 15:54 | P.HPIM ---
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 Denies fevers, reports positive chills. Denies chest pain, palpitations or increase in shortness of breath. EKG reported sinus rhythm with occasional PAC, right bundle block, left anterior fascicular block, troponin pending. Afebrile, WBC 25.9. CT of abdomen pelvis reported suspected acute hemorrhage in the myelolipoma, pulmonary contusion and/or pneumonia right lung base. CT addendum reported comparison to patient's PET/CT on 07/10/2023, hazy soft tissue density as well as nodular 1 cm focus within the fatty tumor (ad renal myelolipoma) remain unchanged from that time, making intratumoral hemorrhage less likely. In addition there is fullness of the gallbladder with cholelithiasis and some haziness possible subtle densities in the distal bile duct, consider ultrasound to exclude possibility of Choleydocholelithiasis and early acute cholecystitis. Abdominal ultrasound pending. on admission hypotensive with blood pressure 80/47, respiratory rate 18, pulse 85, maintaining O2 sats of 94% on room air. Responded to IV fluid hydration. Lactic acid 2.3, follow-up 1.5 post fluid resuscitation. creatinine 12.9, pl atelets 246, sodium 135, potassium 4.6, bicarb 23, BUN 39, creatinine 2.37. Glucose 128. Magnesium 1.7. Total bili 2.2, AST 95, ALT 169, alk phos 140. Tested negative for urine Legionella. Chest x-ray reported no definite radiographic evidence of acute cardiopulmonary disease/process, persistent findings at the right lung base most likely represent chronic process or moderate right pericardial fat. Review of Systems ROS Statement: Those systems with pertinent positive or pertinent negative responses have been documented in the HPI. ROS Other: All systems not noted in ROS Statement are negative. Past Medical History Past Medical History: Diabetes Mellitus, Hypertension, Thyroid Disorder Additional Past Medical History / Comment(s): hemorrhoids, recent fall lt arm scraped and bruised, large mass rt lung, "borderline diabetic" diet controlled History of Any Multi-Drug Resistant Organisms: None Reported Past Surgical History: Heart Catheterization With Stent, Hernia Repair, Tonsillectomy Additional Past Surgical History / Comment(s): "rupture near scrotom", heart stent x2 Past Anesthesia/Blood Transfusion Reactions: No Reported Reaction Date of Last Stent Placement:: 2018 Past Psychological History: No Psychological Hx Reported Smoking Status: Current every day smoker Past Alcohol Use History: None Reported Past Drug Use History: None Reported - Past Family History Mother Family Medical History: No Reported History Medications and Allergies Home Medications Medication Instructions Recorded Confirmed Type Levothyroxine Sodium [Synthroid] 150 mcg PO DAILY 12/25/16 02/15/24 History Tamsulosin [Flomax] 0.4 mg PO DAILY 12/25/16 02/15/24 History Aspirin [Adult Low Dose Aspirin EC] 81 mg PO DAILY 08/20/17 02/15/24 History Apixaban [Eliquis] 5 mg PO BID 02/15/24 02/15/24 History Losartan Potassium 100 mg PO DAILY 02/15/24 02/15/24 History Metoprolol Tartrate [Lopressor] 50 mg PO BID 02/15/24 02/15/24 History allopurinoL [Zyloprim] 100 mg PO DAILY 02/15/24 02/15/24 History Allergies Allergy/AdvReac Type Severity Reaction Status Date / Time No Known Allergies Allergy Verified 02/15/24 14:42 Physical Exam Vitals: Vital Signs Temp Pulse Pulse Resp BP BP Pulse Ox 02/16/24 12:00 97.5 F L 79 18 119/67 92 L 02/16/24 11:16 78 18 106/65 100 02/16/24 06:24 76 18 111/67 94 L 02/16/24 03:55 86 18 107/72 93 L 02/16/24 02:11 91 18 101/65 93 L 02/16/24 01:09 76 18 116/69 94 L 02/15/24 23:41 78 20 112/63 94 L 02/15/24 22:05 82 18 119/65 96 02/15/24 21:08 78 18 102/62 94 L 02/15/24 20:15 95 02/15/24 18:40 98.1 F 71 18 100/67 97 02/15/24 16:42 72 18 98/65 97 02/15/24 14:36 73 18 94/60 96 Intake and Output 02/15/24 02/16/24 02/16/24 22:59 06:59 14:59 Intake Total 462 Balance 462 Intake: Oral 462 Other: # Voids 1 Weight 90.718 kg PHYSICAL EXAM: VITAL SIGNS: [As above] GENERAL: Sitting up in bed, alert and oriented x 3, no acute distress. No conversational dyspnea HEENT: Normocephalic, conjunctivae normal. eyes normal. NECK: Supple, no JVD. No thyroid enlargement. No LNs CARDIOVASCULAR: S1, S2 regular..No murmur RESPIRATION: Unlabored, equal air entry, expiratory wheezing ABDOMEN: Soft, nondistended, nontender . No guarding. no masses palpable. No ascites, No hepatosplenomegaly.Bowel sounds heard. LEGS: No edema. no swelling NERVOUS SYSTEM: Cranial N 2-12 grossly normal. No focal deficits. Strength and sensation grossly intact. Skin: Warm and dry, no rash Results CBC & Chem 7: 02/16/24 11:49 02/16/24 11:49 Labs: Abnormal Lab Results - Last 24 Hours (Table) 02/16/24 02/16/24 02/16/24 Range/Units 00:26 11:34 11:49 WBC (3.8-10.6) k/uL RBC (4.30-5.90) m/uL Hgb (13.0-17.5) gm/dL Neutrophils # (1.3-7.7) k/uL Carbon Dioxide 20 L (22-30) mmol/L BUN 58 H (9-20) mg/dL Creatinine 2.69 H (0.66-1.25) mg/dL Glucose 154 H (74-99) mg/dL POC Glucose (mg/dL) 160 H (70-110) mg/dL ALT 105 H (4-49) U/L Alkaline Phosphatase 136 H (38-126) U/L Albumin 3.4 L (3.5-5.0) g/dL Procalcitonin 7.78 H (0.02-0.09) ng/mL 02/16/24 Range/Units 11:49 WBC 23.4 H (3.8-10.6) k/uL RBC 4.15 L (4.30-5.90) m/uL Hgb 12.3 L (13.0-17.5) gm/dL Neutrophils # 21.7 H (1.3-7.7) k/uL Carbon Dioxide (22-30) mmol/L BUN (9-20) mg/dL Creatinine (0.66-1.25) mg/dL Glucose (74-99) mg/dL POC Glucose (mg/dL) (70-110) mg/dL ALT (4-49) U/L Alkaline Phosphatase (38-126) U/L Albumin (3.5-5.0) g/dL Procalcitonin (0.02-0.09) ng/mL Thrombosis Risk Factor Assmnt - Choose All That Apply Each Factor Represents 1 point: Obesity (BMI >25) Each Risk Factor Represents 3 Points: Age 75 years or older Thrombosis Risk Factor Assessment Total Risk Factor Score: 4 Thrombosis Risk Factor Assessment Level: Moderate Risk Assessment and Plan Assessment: Abdominal pain with nausea, right upper quadrant status post mechanical fall, CT reporting adrenal myolipoma unchanged from prior imaging,fullness of the gallbladder with cholelithiasis and some haziness . Abdominal ultrasound pending. CT reported right lung consolidation with volume loss, possible obstructive pneumonia in a patient with history of squamous cell CA of the right lung. Procalcitonin elevated 7.78 Severe dehydration Acute renal failure secondary to the above Acute leukocytosis Mild transaminitis CAD Hypertension Hypothyroidism BPH Obesity, BMI 30 COPD Ongoing nicotine dependence, smokes up to 1 pack/day Plan: Continue on current medication regimen ,monitoring and symptomatic treatment. Maintain empiric IV antibiotics. abdominal ultrasound pending. Blood and sputum cultures pending .multiple consults following. Smoking cessation reinforced. Close monitoring of WBC, hemoglobin, platelets, renal function and LFTs with repeat labs ordered for a.m. Prognosis guarded given multiple complex medical issues. The impression and plan of care has been dictated as directed. : I performed a history and examination of this patient, discussed the same with the dictator. I agree with the dictator's note ,documented as a scribe. Any additional findings or plans will be noted.
[2024-02-16 16:14] LABS: Glucose,Whole Blood 222 mg/dL (70-110)
[2024-02-16] MEDS: INSULIN ASPART (NovoLOG) 100 UNIT/ML VIAL SQ SCH (16:26)
--- NOTE | 2024-02-16 19:08 | P.GSCN ---
History of Present Illness Consult date: 02/16/24 Reason for Consult: right adrenal mass History of present illness: This is a 83-year-old male that presented to the hospital with right upper q uadrant abdominal pain. Urology is consulted for finding of right-sided adrenal mass. He has known history of lung cancer and follows up with oncology treated with chemoradiation. Adrenal mass was found on CT and abdomen pelvis on presentation of note this mass has been present going back all the way to 2017 at that time it measured approximately 8 cm and continued to be stable in size. On CT most consistent with adrenal myolipoma. This afternoon on evaluation he denied any pain, no voiding dysfunction. No previous renal or adrenal surgeries. Review of Systems - Constitutional Denies fever, Denies weight loss - Cardiovascular Denies chest pain, Denies shortness of breath - Respiratory Denies cough, Denies 7 - Gastrointestinal Reports as per HPI - Genitourinary Denies dysuria, Denies hematuria Past Medical History Past Medical History: Diabetes Mellitus, Hypertension, Thyroid Disorder Additional Past Medical History / Comment(s): hemorrhoids, recent fall lt arm scraped and bruised, large mass rt lung, "borderline diabetic" diet controlled History of Any Multi-Drug Resistant Organisms: None Reported Past Surgical History: Heart Catheterization With Stent, Hernia Repair, Tonsillectomy Additional Past Surgical History / Comment(s): "rupture near scrotom", heart stent x2 Past Anesthesia/Blood Transfusion Reactions: No Reported Reaction Date of Last Stent Placement:: 2018 Past Psychological History: No Psychological Hx Reported Smoking Status: Current every day smoker Past Alcohol Use History: None Reported Past Drug Use History: None Reported - Past Family History Mother Family Medical History: No Reported History Medications and Allergies Home Medications Medication Instructions Recorded Confirmed Type Levothyroxine Sodium [Synthroid] 150 mcg PO DAILY 12/25/16 02/15/24 History Tamsulosin [Flomax] 0.4 mg PO DAILY 12/25/16 02/15/24 History Aspirin [Adult Low Dose Aspirin EC] 81 mg PO DAILY 08/20/17 02/15/24 History Apixaban [Eliquis] 5 mg PO BID 02/15/24 02/15/24 History Losartan Potassium 100 mg PO DAILY 02/15/24 02/15/24 History Metoprolol Tartrate [Lopressor] 50 mg PO BID 02/15/24 02/15/24 History allopurinoL [Zyloprim] 100 mg PO DAILY 02/15/24 02/15/24 History Allergies Allergy/AdvReac Type Severity Reaction Status Date / Time No Known Allergies Allergy Verified 02/15/24 14:42 Surgical - Exam Vital Signs Temp Pulse Resp BP Pulse Ox 98 F 85 18 80/47 94 L 02/15/24 11:37 02/15/24 11:37 02/15/24 11:37 02/15/24 11:37 02/15/24 11:37 - General no distress, no pain - Eyes normal ocular movement, no pale - ENT normal nares, normal mucosa - Respiratory normal expansion, normal respiratory effort - Abdomen Abdomen: soft, non tender Results - Labs 02/16/24 11:49 02/16/24 11:49 Abnormal Lab Results - Last 24 Hours (Table) 02/16/24 02/16/24 02/16/24 Range/Units 00:26 11:34 11:49 WBC (3.8-10.6) k/uL RBC (4.30-5.90) m/uL Hgb (13.0-17.5) gm/dL Neutrophils # (1.3-7.7) k/uL Carbon Dioxide 20 L (22-30) mmol/L BUN 58 H (9-20) mg/dL Creatinine 2.69 H (0.66-1.25) mg/dL Glucose 154 H (74-99) mg/dL POC Glucose (mg/dL) 160 H (70-110) mg/dL ALT 105 H (4-49) U/L Alkaline Phosphatase 136 H (38-126) U/L Albumin 3.4 L (3.5-5.0) g/dL Procalcitonin 7.78 H (0.02-0.09) ng/mL 02/16/24 02/16/24 Range/Units 11:49 16:13 WBC 23.4 H (3.8-10.6) k/uL RBC 4.15 L (4.30-5.90) m/uL Hgb 12.3 L (13.0-17.5) gm/dL Neutrophils # 21.7 H (1.3-7.7) k/uL Carbon Dioxide (22-30) mmol/L BUN (9-20) mg/dL Creatinine (0.66-1.25) mg/dL Glucose (74-99) mg/dL POC Glucose (mg/dL) 222 H (70-110) mg/dL ALT (4-49) U/L Alkaline Phosphatase (38-126) U/L Albumin (3.5-5.0) g/dL Procalcitonin (0.02-0.09) ng/mL Microbiology - Last 24 Hours (Table) 02/15/24 20:13 Gram Stain - Preliminary Sputum Diabetes panel 02/16/24 Range/Units 11:49 Sodium 140 (137-145) mmol/L Potassium 4.0 (3.5-5.1) mmol/L Chloride 106 (98-107) mmol/L Carbon Dioxide 20 L (22-30) mmol/L BUN 58 H (9-20) mg/dL Creatinine 2.69 H (0.66-1.25) mg/dL Glucose 154 H (74-99) mg/dL Calcium 9.5 (8.4-10.2) mg/dL AST 44 (17-59) U/L ALT 105 H (4-49) U/L Alkaline Phosphatase 136 H (38-126) U/L Total Protein 6.9 (6.3-8.2) g/dL Albumin 3.4 L (3.5-5.0) g/dL Calcium panel 02/16/24 Range/Units 11:49 Calcium 9.5 (8.4-10.2) mg/dL Albumin 3.4 L (3.5-5.0) g/dL Pituitary panel 02/16/24 Range/Units 11:49 Sodium 140 (137-145) mmol/L Potassium 4.0 (3.5-5.1) mmol/L Chloride 106 (98-107) mmol/L Carbon Dioxide 20 L (22-30) mmol/L BUN 58 H (9-20) mg/dL Creatinine 2.69 H (0.66-1.25) mg/dL Glucose 154 H (74-99) mg/dL Calcium 9.5 (8.4-10.2) mg/dL Adrenal panel 02/16/24 Range/Units 11:49 Sodium 140 (137-145) mmol/L Potassium 4.0 (3.5-5.1) mmol/L Chloride 106 (98-107) mmol/L Carbon Dioxide 20 L (22-30) mmol/L BUN 58 H (9-20) mg/dL Creatinine 2.69 H (0.66-1.25) mg/dL Glucose 154 H (74-99) mg/dL Calcium 9.5 (8.4-10.2) mg/dL Total Bilirubin 0.7 (0.2-1.3) mg/dL AST 44 (17-59) U/L ALT 105 H (4-49) U/L Alkaline Phosphatase 136 H (38-126) U/L Total Protein 6.9 (6.3-8.2) g/dL Albumin 3.4 L (3.5-5.0) g/dL Assessment and Plan Assessment: 83-year-old male with history of 8 cm right-sided adrenal myolipoma has been stable in size for the past 7 to 8 years. The adrenal mass is unlikely to be the cause of his pain given the stability in size and has been present for more than 7 years. At this point no further intervention from urology standpoint.. Given stability for 8 years, his age and comorbidities at this point I don't recommend any further evaluation for the adrenal mass
[2024-02-16 20:14] LABS: Glucose,Whole Blood 141 mg/dL (70-110)
[2024-02-17 06:03] LABS: Glucose,Whole Blood 144 mg/dL (70-110)
[2024-02-17 07:05] LABS: Basophils % (A) 0 %; Eosinophils % (A) 0 %; HCT 39.1 % (39.0-53.0); HGB 12.1 gm/dL (13.0-17.5); Lymphocytes # (A) 1.1 k/uL (1.0-4.8); Lymphocytes % (A) 5 %; MCH 29.4 pg (25.0-35.0); MCHC 30.9 g/dL (31.0-37.0); MCV 95.2 fL (80.0-100.0); Mean Platelet Volume 9.3; Monocytes # (A) 0.4 k/uL (0-1.0); Monocytes % (A) 2 %; Neutrophils # (A) 18.3 k/uL (1.3-7.7); Neutrophils % (A) 92 %; Platelet Count 259 k/uL (150-450); RDW 13.9 % (11.5-15.5); WBC 19.8 k/uL (3.8-10.6)
[2024-02-17 07:19] LABS: ALT 81 U/L (4-49); AST 36 U/L (17-59); African American GFR (CKD) 32 (>60 ml/min/1.73 sqM); Albumin 3.2 g/dL (3.5-5.0); Alkaline Phosphatase 114 U/L (38-126); Anion Gap 12 mmol/L; Blood Urea Nitrogen 61 mg/dL (9-20); Calcium 9.4 mg/dL (8.4-10.2); Carbon Dioxide 23 mmol/L (22-30); Chloride 107 mmol/L (98-107); Glucose 150 mg/dL (74-99); Non-African American GFR(CKD) 27 (>60 ml/min/1.73 sqM); Potassium 3.8 mmol/L (3.5-5.1); Sodium 142 mmol/L (137-145); Total Bilirubin 0.6 mg/dL (0.2-1.3); Total Protein 6.6 g/dL (6.3-8.2)
[2024-02-17] MEDS: METOPROLOL SUCCINATE (ER) 25 MG TAB.ER.24H PO SCH (08:36)
[2024-02-17] MEDS ORDERED: IPRATROPIUM-ALBUTEROL 3 ML NEB INHALATION PRN (11:11)
--- NOTE | 2024-02-17 11:32 | P.NPCON ---
History of Present Illness - Reason for Consult acute renal failure - History of Present Illness Reason for consultation: Acute kidney injury History of present illness: Patient is 83-year-old male seen in renal consultation for acute kidney injury. Patient's creatinine in June 2022 was 1.19. This admission it was up to 2.69 and is 2.18 today. Patient's blood pressure was noted to be low on admi ssion and he did receive fluid bolus. He is currently not on any IV fluids. Oral intake is fair. Denies vomiting or diarrhea. Patient denies history of diabetes. Patient does have history of coronary artery disease with cardiac stents. No hydronephrosis noted on imaging. Patient came to the hospital after he sustained a fall and fell on his abdomen. There was concern for hemorrhage in the adrenal myelolipoma. He is being followed by surgery as well as urology. Patient also has history of lung cancer for which she has been treated with chemotherapy in the past and PET scan from June 2023 showed no evidence of disease recurrence. Oncology is following. He denies gross hematuria or dysuria. Hemoglobin stable at 12.1. Denies family history of renal disease. Vital signs are stable. General: No acute distress. HEENT: Head exam is unremarkable. LUNGS: No audible rhonchi or wheezes. HEART: Rate and Rhythm are regular. ABDOMEN: Nontender. EXTREMITITES: No edema. Past Medical History Past Medical History: Diabetes Mellitus, Hypertension, Thyroid Disorder Additional Past Medical History / Comment(s): hemorrhoids, recent fall lt arm scraped and bruised, large mass rt lung, "borderline diabetic" diet controlled History of Any Multi-Drug Resistant Organisms: None Reported Past Surgical History: Heart Catheterization With Stent, Hernia Repair, Tonsillectomy Additional Past Surgical History / Comment(s): "rupture near scrotom", heart stent x2 Past Anesthesia/Blood Transfusion Reactions: No Reported Reaction Date of Last Stent Placement:: 2018 Past Psychological History: No Psychological Hx Reported Smoking Status: Current every day smoker Past Alcohol Use History: None Reported Past Drug Use History: None Reported - Past Family History Mother Family Medical History: No Reported History Medications and Allergies Home Medications Medication Instructions Recorded Confirmed Type Levothyroxine Sodium [Synthroid] 150 mcg PO DAILY 12/25/16 02/15/24 History Tamsulosin [Flomax] 0.4 mg PO DAILY 12/25/16 02/15/24 History Aspirin [Adult Low Dose Aspirin EC] 81 mg PO DAILY 08/20/17 02/15/24 History Apixaban [Eliquis] 5 mg PO BID 02/15/24 02/15/24 History Losartan Potassium 100 mg PO DAILY 02/15/24 02/15/24 History Metoprolol Tartrate [Lopressor] 50 mg PO BID 02/15/24 02/15/24 History allopurinoL [Zyloprim] 100 mg PO DAILY 02/15/24 02/15/24 History Allergies Allergy/AdvReac Type Severity Reaction Status Date / Time No Known Allergies Allergy Verified 02/15/24 14:42 Physical Exam Vitals: Vital Signs Temp Pulse Resp BP Pulse Ox 02/17/24 08:00 97.2 F L 72 16 104/58 94 L 02/17/24 04:00 97.5 F L 64 18 106/52 94 L 02/17/24 02:00 70 18 02/17/24 00:00 97.9 F 70 18 114/70 94 L 02/16/24 21:24 95 02/16/24 20:00 98.0 F 54 L 18 98/52 95 02/16/24 16:00 68 18 109/58 92 L 02/16/24 12:00 97.5 F L 79 18 119/67 92 L Intake and Output 02/16/24 02/17/24 02/17/24 22:59 06:59 14:59 Intake Total 350 110 Balance 350 110 Intake: IV 10 0.9 10 Intake, IV Titration 100 Amount Piperacillin-Tazobactam 3 100 .375 gm In Sodium Chloride 0.9% 100 ml @ 25 mls/hr IVPB Q8H [facility] Rx#: [id number] Oral 240 110 Other: Voiding Method Toilet Toilet # Voids 1 2 Results - Lab Results Most recent lab results Calcium 9.4 mg/dL (8.4-10.2) 02/17/24 06:09 Magnesium 1.7 mg/dL (1.6-2.3) 02/15/24 12:07 02/17/24 06:09 02/17/24 06:09 Assessment and Plan Plan: Assessment: 1. Acute kidney injury secondary to ATN secondary to hypotension. Creatinine peaked at 2.69 this admission and is 2.18 today. No hydronephrosis noted on kidney ultrasound. Creatinine 1.19 in June 2023. 2. Status post fall. 3. Right adrenal myelolipoma. 4. Lung cancer being followed by oncology. 5. Benign hypertension. Controlled. 6. Coronary disease with cardiac stents. Plan: Add gentle IV hydration. Check UA. Avoid nephrotoxins. Continue to hold losartan for now. Encouraged oral intake. Continue to monitor renal function and urine output. Thank you for the consultation. I will continue to follow the patient with you during his hospital stay.
--- NOTE | 2024-02-17 14:29 | P.PN ---
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 Denies fevers, reports positive chills. Denies chest pain, palpitations or increase in shortness of breath. EKG reported sinus rhythm with occasional PAC, right bundle block, left anterior fascicular block, troponin pending. Afebrile, WBC 25.9. CT of abdomen pelvis reported suspected acute hemorrhage in the myelolipoma, pulmonary contusion and/or pneumonia right lung base. CT addendum reported comparison to patient's PET/CT on 07/10/2023, hazy soft tissue density as well as nodular 1 cm focus within the fatty tumor (adrenal myelolipoma) remain unchanged from that time, making intratumoral hemorrhage less likely. In addition there is fullness of the gallbladder with cholelithiasis and some haziness possible subtle densities in the distal bile duct, consider ultrasound to exclude possibility of Choleydocholelithiasis and early acute cholecystitis. Abdominal ultrasound pending. on admission hypotensive with blood pressure 80/47, respiratory rate 18, pulse 85, maintaining O2 sats of 94% on room air. Responded to IV fluid hydration. Lactic acid 2.3, follow-up 1.5 post fluid resuscitation. creatinine 12.9, platelets 246, sodium 135, potassium 4.6, bicarb 23, BUN 39, creatinine 2.37. Glucose 128. Magnesium 1.7. Total bili 2.2, AST 95, ALT 169, alk phos 140. Tested negative for urine Legionella. Chest x-ray reported no definite radiographic evidence of acute cardiopulmonary disease/process, persistent findings at the right lung base most likely represent chronic process or moderate right pericardial fat. 02/17/2024 evaluated by urology with no further intervention recommended at this time given stability of 7 to 8 years per their review. Evaluated by oncology with no further interventions at this time, recommending follow-up in clinic outpatient. Feels better this morning. Afebrile, WBC trending down, 19.8. BUN 61, creatinine decreased to 2.18, LFTs improved. Denies abdominal pain. Denies nausea or vomiting. Maintained on nebulized bronchodilators, IV steroids and Zosyn . Blood sugars better controlled.Denies chest pain, palpitations or shortn ess of breath. Maintaining O2 sats in the 90s on room air. Expiratory wheezing decreased today. Abdominal ultrasound reported borderline to mild hydropic gallbladder with some layering stones, no wall thickening or sonographic Stone sign to indicate acute cholecystitis, bile duct caliber 6 mm normal, possible subtotal contour nodularity of the liver was slightly heterogenous appearance, correlate for underlying nonspecific hepatocellular disease, known 8.9 cm right adrenal myelolipoma, distal AAA at 3.2 cm, no hydronephrosis. Hemoglobin 12.1, platelets 259. Hemoglobin A1c 6.2 Objective - Vital Signs Vital signs: Vital Signs Temp 97.2 F L 02/17/24 08:00 Pulse 72 02/17/24 08:00 Resp 16 02/17/24 08:00 BP 104/58 02/17/24 08:00 Pulse Ox 94 L 02/17/24 08:00 FiO2 Intake & Output 02/16/24 02/17/24 02/17/24 18:59 06:59 18:59 Intake Total 702 110 110 Balance 702 110 110 Weight 90.718 kg Intake: IV 10 0.9 10 Intake, IV Titration 100 Amount Piperacillin-Tazobactam 3 100 .375 gm In Sodium Chloride 0.9% 100 ml @ 25 mls/hr IVPB Q8H [facility] Rx#: [id number] Oral 702 110 Other: Voiding Method Toilet # Voids 1 2 - Exam PHYSICAL EXAM: VITAL SIGNS: [As above] GENERAL: Alert and oriented x 3, lying in bed, no acute distress. No conversational dyspnea HEENT: Normocephalic, conjunctivae normal. eyes normal. NECK: Supple, no JVD. CARDIOVASCULAR: S1, S2 regular..No murmur RESPIRATION: Unlabored, equal air entry, decreased expiratory wheezing ABDOMEN: Soft, nondistended, nontender . No guarding. +BS. LEGS: No edema. no swelling NERVOUS SYSTEM: Cranial N 2-12 grossly normal. No focal deficits. Skin: Warm and dry, no rash Microbiology 04/22/24 16:20 Blood Blood Culture - Preliminary 02/15/24 16:05 Blood Blood Culture - Preliminary 02/15/24 20:13 Sputum Gram Stain - Preliminary - Labs CBC & Chem 7: 02/17/24 06:09 02/17/24 06:09 Labs: Abnormal Lab Results - Last 24 Hours (Table) 02/16/24 02/16/24 02/16/24 Range/Units 11:34 11:49 11:49 WBC 23.4 H (3.8-10.6) k/uL RBC 4.15 L (4.30-5.90) m/uL Hgb 12.3 L (13.0-17.5) gm/dL MCHC (31.0-37.0) g/dL Neutrophils # 21.7 H (1.3-7.7) k/uL Carbon Dioxide 20 L (22-30) mmol/L BUN 58 H (9-20) mg/dL Creatinine 2.69 H (0.66-1.25) mg/dL Glucose 154 H (74-99) mg/dL POC Glucose (mg/dL) 160 H (70-110) mg/dL Hemoglobin A1c (<=6.0) % ALT 105 H (4-49) U/L Alkaline Phosphatase 136 H (38-126) U/L Albumin 3.4 L (3.5-5.0) g/dL 02/16/24 02/16/24 02/17/24 Range/Units 16:13 20:12 06:02 WBC (3.8-10.6) k/uL RBC (4.30-5.90) m/uL Hgb (13.0-17.5) gm/dL MCHC (31.0-37.0) g/dL Neutrophils # (1.3-7.7) k/uL Carbon Dioxide (22-30) mmol/L BUN (9-20) mg/dL Creatinine (0.66-1.25) mg/dL Glucose (74-99) mg/dL POC Glucose (mg/dL) 222 H 141 H 144 H (70-110) mg/dL Hemoglobin A1c (<=6.0) % ALT (4-49) U/L Alkaline Phosphatase (38-126) U/L Albumin (3.5-5.0) g/dL 02/17/24 02/17/24 02/17/24 Range/Units 06:09 06:09 06:09 WBC 19.8 H (3.8-10.6) k/uL RBC 4.10 L (4.30-5.90) m/uL Hgb 12.1 L (13.0-17.5) gm/dL MCHC 30.9 L (31.0-37.0) g/dL Neutrophils # 18.3 H (1.3-7.7) k/uL Carbon Dioxide (22-30) mmol/L BUN 61 H (9-20) mg/dL Creatinine 2.18 H (0.66-1.25) mg/dL Glucose 150 H (74-99) mg/dL POC Glucose (mg/dL) (70-110) mg/dL Hemoglobin A1c 6.2 H (<=6.0) % ALT 81 H (4-49) U/L Alkaline Phosphatase (38-126) U/L Albumin 3.2 L (3.5-5.0) g/dL Microbiology - Last 24 Hours (Table) 02/15/24 16:20 Blood Culture - Preliminary Blood 02/15/24 16:05 Blood Culture - Preliminary Blood 02/15/24 20:13 Gram Stain - Preliminary Sputum Assessment and Plan Assessment: Abdominal pain with nausea, right upper quadrant status post mechanical fall, CT reporting adrenal myolipoma unchanged from prior imaging,fullness of the gallbladder with cholelithiasis and some haziness . Abdominal ultrasound reported hydropic gallbladder with gallstones,no wall thickening or sonographic Stone sign to indicate acute cholecystitis. Possible multifocal pneumonia CT reported right lung consolidation with volume loss, possible obstructive pneumonia in a patient with history of squamous cell CA of the right lung. Procalcitonin elevated 7.78 Hypotension Severe dehydration Acute renal failure secondary to to the above, ATN Acute leukocytosis Mild transaminitis, improving CAD Hypertension Hypothyroidism BPH Obesity, BMI 30 COPD Ongoing nicotine dependence, smokes up to 1 pack/day Hemoglobin A1c 6.2 Plan: Continue on current medication regimen ,monitoring and symptomatic treatment. Losartan remains on hold. IV Zosyn. Blood and sputum cultures pending .increase ambulation as tolerated .smoking cessation reinforced. Discharge planning in progress for tomorrow pending final DC recommendations and clearance as per nephrology,pulmonary and general surgery. The impression and plan of care has been dictated as directed. : I performed a history and examination of this patient, discussed the same with the dictator. I agree with the dictator's note ,documented as a scribe. Any additional findings or plans will be noted.
--- NOTE | 2024-02-17 15:08 | P.PN ---
Subjective Progress Note Date: 02/17/24 Principal diagnosis: Pneumonia. Patient is a 83-year-old white male with past medical history significant for squamous cell lung carcinoma originally diagnosed back in 2020 status post chemo/radiation, COPD, ongoing tobacco dependence, coronary artery disease with previous PCI/stent, hypertension, BPH, hypothyroidism, and gout. As stated above, patient does have history of advanced squamous cell lung cancer with subcarinal lymph node involvement. Patient is status post chemo and radiation. Patient does follow up with his oncologist, which I believe is Dr. Ann. Patient presented to the emergency room yesterday afternoon after having a fall on Thursday. He tripped over his cat, landed on a box fan. Most of the impact hit his abdominal area. Denies landing on his side or hitting his head. Since then, he has had some mild bandlike abdominal tenderness. He also reports nausea and vomiting with eating. He has not been eating and drinking a lot because he cannot keep anything down. 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 Image was also read as suspected pulmonary contusion and/or pneumonia at the right lung base. I reviewed the CAT scan myself and compared to previous PET scan. This consolidation and right lung volume loss appears to be consistent with the patient's known lung mass. He is currently in the emergency department, room 20. He is lying in bed, on room air, in no acute distress. SpO2 is 93 to 94%. Patient states that he never hit his chest or head when falling. Denies any right-sided chest pain. Nontender to palpation. No associated crepitus or ecchymosis. He does report some tenderness in the right upper abdominal quadrant. Does report nausea and vom iting over the last 4 days. Associated with eating. Emesis described as brown mixed with food. Denies hematemesis. No diarrhea. Denies rose blood in bowel movements. Denies melena. Denies any infectious pulmonary symptoms such as shortness of breath different from his baseline, change in his chronic cough, significant sputum production, hemoptysis, fevers or chills. CBC does show some leukocytosis with a WBC count of 25.9, hemoglobin 12.9, hematocrit 38.9, platelets 246. BMP on arrival: Sodium 135, potassium 4.6, chloride 101, serum bicarb 23, BUN 39, creatinine 2.37, glucose 128. Lactic acid level 2.3 down to 1.5. LFTs mildly elevated. Total bilirubin 2.2. Overall vital signs are stable. Progress note dated February 17, 2024. 83-year-old male seen in consultation yesterday. Please see the note above. Patient has a history of multiple medical problems including lung cancer, COPD, tobacco dependence syndrome, coronary disease, with previous stent, hypertension, BPH, hypothyroidism, and gout. The patient presented to the emergency department, having fallen, and he apparently injured his abdominal area. Currently, the patient appears to be doing reasonably well. He is on room air. He is not receiving any IV fluids. His procalcitonin level was elevated. Current labs include a white count 19.8, hemoglobin 12.1, hematocrit 39.1, and a platelet count that was normal. Sodium 142, potassium 3.8, chlorides 107, CO2 83, anion gap 12, BUN 61, creatinine 2.18. Glucose was 150. Albumin was 3.2. Blood and sputum sampling is thus far negative. Objective - Vital Signs Vital signs: Vital Signs Temp 97.2 F L 02/17/24 08:00 Pulse 67 02/17/24 12:00 Resp 16 02/17/24 12:00 BP 106/58 02/17/24 12:00 Pulse Ox 95 02/17/24 12:00 FiO2 Intake & Output 02/16/24 02/17/24 02/17/24 18:59 06:59 18:59 Intake Total 702 110 220 Balance 702 110 220 Weight 90.718 kg Intake: IV 10 0.9 10 Intake, IV Titration 100 Amount Piperacillin-Tazobactam 3 100 .375 gm In Sodium Chloride 0.9% 100 ml @ 25 mls/hr IVPB Q8H [facility] Rx#: [id number] Oral 702 220 Other: Voiding Method Toilet Toilet # Voids 1 2 - Exam No acute distress, oriented 3. Currently on room air. Saturations are 95%. No respiratory distress. HEENT examination is grossly unremarkable. Mucous membranes are moist. No oral lesions. Neck supple. Full range of motion. No adenopathy thyromegaly or neck vein distention. Cardiovascular examination reveals regular rhythm rate. S1-S2 normal. No S3 or S4. No discernible murmur noted. Heart sounds are distant. Heart rate 67 bpm. Lungs reveal clear breath sounds. Breath sounds are equal bilaterally. No adventitious lung sounds including wheezes rhonchi or crackles. Room air saturations are 95%. Abdomen soft bowel sounds are heard. No masses or tenderness. Extremities are intact. No cyanosis clubbing or edema. Skin is without rash or lesion. Neurologic examination is brief but nonfocal. - Labs CBC & Chem 7: 02/17/24 06:09 02/17/24 06:09 Labs: Abnormal Lab Results - Last 24 Hours (Table) 02/16/24 02/16/24 02/17/24 Range/Units 16:13 20:12 06:02 WBC (3.8-10.6) k/uL RBC (4.30-5.90) m/uL Hgb (13.0-17.5) gm/dL MCHC (31.0-37.0) g/dL Neutrophils # (1.3-7.7) k/uL BUN (9-20) mg/dL Creatinine (0.66-1.25) mg/dL Glucose (74-99) mg/dL POC Glucose (mg/dL) 222 H 141 H 144 H (70-110) mg/dL Hemoglobin A1c (<=6.0) % ALT (4-49) U/L Albumin (3.5-5.0) g/dL 02/17/24 02/17/24 02/17/24 Range/Units 06:09 06:09 06:09 WBC 19.8 H (3.8-10.6) k/uL RBC 4.10 L (4.30-5.90) m/uL Hgb 12.1 L (13.0-17.5) gm/dL MCHC 30.9 L (31.0-37.0) g/dL Neutrophils # 18.3 H (1.3-7.7) k/uL BUN 61 H (9-20) mg/dL Creatinine 2.18 H (0.66-1.25) mg/dL Glucose 150 H (74-99) mg/dL POC Glucose (mg/dL) (70-110) mg/dL Hemoglobin A1c 6.2 H (<=6.0) % ALT 81 H (4-49) U/L Albumin 3.2 L (3.5-5.0) g/dL Microbiology - Last 24 Hours (Table) 02/15/24 16:20 Blood Culture - Preliminary Blood 02/15/24 16:05 Blood Culture - Preliminary Blood 02/15/24 20:13 Gram Stain - Preliminary Sputum Assessment and Plan Assessment: Fall. 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 History of non-small cell lung carcinoma, originally diagnosed back in 2020, status post chemo and radiation. CT scan results from this admission identified a right lung consolidation with volume loss of the likely consistent with the patient's prior history of lung cancer and treatment changes. Superimposed obstructive pneumonia not completely excluded at this time. Pulmonary contusion felt to be less likely. Mild acute COPD exacerbation. Acute leukocytosis. Mild transaminitis. Severe dehydration. Acute kidney injury, possibly secondary to above and ATN. Chronic ongoing tobacco dependence, continues to smoke 3/4 to 1 pack/day. History of coronary artery disease. History of hypertension. History of hypothyroidism. History of benign prostatic hyperplasia. History of gout. Plan: Plan dated February 17, 2024. The patient continues on Solu-Medrol, updrafts, and Zosyn empirically. Labs, x- rays, medications are reviewed. We will continue to follow the patient, make recommendations along the way. The patient is currently on room air. He is not receiving any IV fluids. His procalcitonin level was elevated at 7.78. We will continue to follow the patient, and make recommendations. Prognosis is currently guarded. Time with Patient: Less than 30
[2024-02-17 16:10] LABS: Glucose,Whole Blood 86 mg/dL (70-110)
--- NOTE | 2024-02-17 16:37 | P.PN ---
Subjective Progress Note Date: 02/17/24 CHIEF COMPLAINT: Fall HISTORY OF PRESENT ILLNESS: Patient reports his abdominal pain has improved. He did report lower abdominal pain when he moved to close the blinds. He also had some mild lower abdominal discomfort after eating. But that resolved after a few minutes. He has been eating. Denies any nausea or vomiting. Afebrile. WBC is down from 23-19 Hgb 12.1 creatinine 2.18. LFTs trending down total bilirubin normal at 0.6 patient being seen by nephrology. Patient seen by urology regarding the adrenal lipoma. There is been no change. They are recommending no intervention. PHYSICAL EXAM: VITAL SIGNS: Reviewed. GENERAL: Well-developed in no acute distress. ABDOMEN: Soft. Nondistended. Nontender. No ecchymosis NEUROLOGIC: Awake and alert ASSESSMENT: 1. Chronic cholecystitis. Hydropic gallbladder and gallstones noted on ultrasound. LFTs and total bilirubin improving 2. Lower abdominal pain after a fall 3. 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 Signing provider agrees with the documented findings, assessment, and plan of care. Objective - Vital Signs Vital signs: Vital Signs Temp 97.2 F L 02/17/24 08:00 Pulse 67 02/17/24 12:00 Resp 16 02/17/24 12:00 BP 106/58 02/17/24 12:00 Pulse Ox 95 02/17/24 12:00 FiO2 Intake & Output 02/16/24 02/17/24 02/17/24 18:59 06:59 18:59 Intake Total 702 110 220 Balance 702 110 220 Weight 90.718 kg Intake: IV 10 0.9 10 Intake, IV Titration 100 Amount Piperacillin-Tazobactam 3 100 .375 gm In Sodium Chloride 0.9% 100 ml @ 25 mls/hr IVPB Q8H [facility] Rx#: [id number] Oral 702 220 Other: Voiding Method Toilet Toilet # Voids 1 2 - Labs CBC & Chem 7: 02/17/24 06:09 02/17/24 06:09 Labs: Abnormal Lab Results - Last 24 Hours (Table) 02/16/24 02/17/24 02/17/24 Range/Units 20:12 06:02 06:09 WBC (3.8-10.6) k/uL RBC (4.30-5.90) m/uL Hgb (13.0-17.5) gm/dL MCHC (31.0-37.0) g/dL Neutrophils # (1.3-7.7) k/uL BUN (9-20) mg/dL Creatinine (0.66-1.25) mg/dL Glucose (74-99) mg/dL POC Glucose (mg/dL) 141 H 144 H (70-110) mg/dL Hemoglobin A1c 6.2 H (<=6.0) % ALT (4-49) U/L Albumin (3.5-5.0) g/dL 02/17/24 02/17/24 Range/Units 06:09 06:09 WBC 19.8 H (3.8-10.6) k/uL RBC 4.10 L (4.30-5.90) m/uL Hgb 12.1 L (13.0-17.5) gm/dL MCHC 30.9 L (31.0-37.0) g/dL Neutrophils # 18.3 H (1.3-7.7) k/uL BUN 61 H (9-20) mg/dL Creatinine 2.18 H (0.66-1.25) mg/dL Glucose 150 H (74-99) mg/dL POC Glucose (mg/dL) (70-110) mg/dL Hemoglobin A1c (<=6.0) % ALT 81 H (4-49) U/L Albumin 3.2 L (3.5-5.0) g/dL Microbiology - Last 24 Hours (Table) 02/15/24 16:20 Blood Culture - Preliminary Blood 02/15/24 16:05 Blood Culture - Preliminary Blood 02/15/24 20:13 Gram Stain - Preliminary Sputum
[2024-02-17] MEDS: SODIUM CHLORIDE 0.9% 1,000 ML IV SCH (19:37)
[2024-02-17 20:51] LABS: Glucose,Whole Blood 157 mg/dL (70-110)
[2024-02-17 22:58] LABS: Appearance,Urine Clear (Clear); Bilirubin,Urine Negative (Negative); Blood,Urine Negative (Negative); Color,Urine Light Yellow; Glucose,Urine (UA) 1+ (Negative); Ketones,Urine Negative (Negative); Leukocyte Esterase,Urine Negative (Negative); Nitrite,Urine Negative (Negative); PH, Urine 5.5 (5.0-8.0); Protein,Urine Trace (Negative); Specific Gravity,Urine 1.022 (1.001-1.035); Urobilinogen,Urine <2.0 mg/dL (<2.0)
[2024-02-18 05:04] VITALS: RESP 16
[2024-02-18 05:59] LABS: Glucose,Whole Blood 154 mg/dL (70-110)
[2024-02-18 09:27] VITALS: TEMP 97
--- NOTE | 2024-02-18 10:38 | P.PN ---
Subjective Patient is seen in follow-up for acute kidney injury. Oral intake is good. Admits to good urine output. No vomiting or diarrhea. Vital signs are stable. General: No acute distress. HEENT: Head exam is unremarkable. LUNGS: No audible rhonchi or wheezes. HEART: Rate and Rhythm are regular. ABDOMEN: Nontender. EXTREMITITES: No edema. Objective - Vital Signs Vital signs: Vital Signs Temp 97 F L 02/18/24 08:00 Pulse 77 02/18/24 08:00 Resp 16 02/18/24 08:00 BP 140/69 02/18/24 08:00 Pulse Ox 94 L 02/18/24 08:00 FiO2 Intake & Output 02/17/24 02/18/24 02/18/24 18:59 06:59 18:59 Intake Total 960 240 354 Output Total 1 Balance 960 239 354 Intake: Intake, IV Titration 500 Amount Piperacillin-Tazobactam 3 200 .375 gm In Sodium Chloride 0.9% 100 ml @ 25 mls/hr IVPB Q8H [facility] Rx#: [id number] Sodium Chloride 0.9% 1, 300 000 ml @ 50 mls/hr IV . Q20H [facility] Rx#:[id number] Oral 460 240 354 Output: Urine 1 Other: Voiding Method Toilet Toilet Toilet # Voids 1 - Labs CBC & Chem 7: 02/17/24 06:09 02/17/24 06:09 Labs: Abnormal Lab Results - Last 24 Hours (Table) 02/17/24 02/17/24 02/17/24 Range/Units 06:09 12:00 20:50 POC Glucose (mg/dL) 157 H (70-110) mg/dL Hemoglobin A1c 6.2 H (<=6.0) % Urine Protein Trace H (Negative) Urine Glucose (UA) 1+ H (Negative) 02/18/24 Range/Units 05:53 POC Glucose (mg/dL) 154 H (70-110) mg/dL Hemoglobin A1c (<=6.0) % Urine Protein (Negative) Urine Glucose (UA) (Negative) Microbiology - Last 24 Hours (Table) 02/15/24 20:13 Gram Stain - Preliminary Sputum Sputum Culture - Preliminary Gram Neg Bacilli 02/15/24 16:20 Blood Culture - Preliminary Blood 02/15/24 16:05 Blood Culture - Preliminary Blood Assessment and Plan Plan: Assessment: 1. Acute kidney injury secondary to ATN secondary to hypotension. Creatinine peaked at 2.69 this admission - 2.18 yesterday. No hydronephrosis noted on kidney ultrasound. Creatinine 1.19 in June 2023. UA fairly benign. 2. Status post fall. 3. Right adrenal myelolipoma. 4. Lung cancer being followed by oncology. 5. Benign hypertension. Controlled. 6. Coronary disease with cardiac stents. Plan: Hep-Lock IV fluids. Avoid nephrotoxins. Continue to hold losartan for now. Encouraged oral intake. Continue to monitor renal function and urine output.
[2024-02-18 11:20] LABS: African American GFR (CKD) 51 (>60 ml/min/1.73 sqM); Anion Gap 9 mmol/L; Blood Urea Nitrogen 60 mg/dL (9-20); Carbon Dioxide 24 mmol/L (22-30); Chloride 109 mmol/L (98-107); Glucose 201 mg/dL (74-99); Magnesium 1.9 mg/dL (1.6-2.3); Non-African American GFR(CKD) 45 (>60 ml/min/1.73 sqM); Potassium 4.4 mmol/L (3.5-5.1); Sodium 142 mmol/L (137-145)
--- NOTE | 2024-02-18 12:03 | P.PN ---
Subjective Progress Note Date: 02/18/24 CHIEF COMPLAINT: Fall HISTORY OF PRESENT ILLNESS: Patient denies any abdominal pain. Denies any nausea or vomiting. Tolerating diet. Afebrile PHYSICAL EXAM: VITAL SIGNS: Reviewed. GENERAL: Well-developed in no acute distress. ABDOMEN: Soft. Nondistended. Nontender. No ecchymosis NEUROLOGIC: Awake and alert ASSESSMENT: 1. Chronic cholecystitis. Hydropic gallbladder and gallstones noted on u ltrasound. LFTs and total bilirubin improving 2. Lower abdominal pain after a fall 3. 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 Seen by urology. No intervention planned. PLAN: -Patient can be discharged from surgical standpoint -Recommend outpatient cholecystectomy -Continue low-fat diet Physician Special Makeup Fx Artist Instructor note has been reviewed by physician. Signing provider agrees with the documented findings, assessment, and plan of care. Objective - Vital Signs Vital signs: Vital Signs Temp 97 F L 02/18/24 08:00 Pulse 77 02/18/24 08:00 Resp 16 02/18/24 08:00 BP 140/69 02/18/24 08:00 Pulse Ox 94 L 02/18/24 08:00 FiO2 Intake & Output 02/17/24 02/18/24 02/18/24 18:59 06:59 18:59 Intake Total 960 240 354 Output Total 1 Balance 960 239 354 Intake: Intake, IV Titration 500 Amount Piperacillin-Tazobactam 3 200 .375 gm In Sodium Chloride 0.9% 100 ml @ 25 mls/hr IVPB Q8H [facility] Rx#: [id number] Sodium Chloride 0.9% 1, 300 000 ml @ 50 mls/hr IV . Q20H [facility] Rx#:[id number] Oral 460 240 354 Output: Urine 1 Other: Voiding Method Toilet Toilet Toilet # Voids 1 - Labs CBC & Chem 7: 02/17/24 06:09 02/18/24 09:01 Labs: Abnormal Lab Results - Last 24 Hours (Table) 02/17/24 02/17/24 02/18/24 Range/Units 12:00 20:50 05:53 Chloride (98-107) mmol/L BUN (9-20) mg/dL Creatinine (0.66-1.25) mg/dL Glucose (74-99) mg/dL POC Glucose (mg/dL) 157 H 154 H (70-110) mg/dL Urine Protein Trace H (Negative) Urine Glucose (UA) 1+ H (Negative) 02/18/24 Range/Units 09:01 Chloride 109 H (98-107) mmol/L BUN 60 H (9-20) mg/dL Creatinine 1.46 H (0.66-1.25) mg/dL Glucose 201 H (74-99) mg/dL POC Glucose (mg/dL) (70-110) mg/dL Urine Protein (Negative) Urine Glucose (UA) (Negative) Microbiology - Last 24 Hours (Table) 02/15/24 20:13 Gram Stain - Preliminary Sputum Sputum Culture - Preliminary Gram Neg Bacilli 02/15/24 16:20 Blood Culture - Preliminary Blood 02/15/24 16:05 Blood Culture - Preliminary Blood
[2024-02-18 12:04] LABS: Glucose,Whole Blood 202 mg/dL (70-110)
--- NOTE | 2024-02-18 12:06 | P.DS ---
Providers Date of admission: 02/15/24 18:27 Expected date of discharge: 02/18/24 Attending physician: Devonte Manning MD Consults: 02/15/24 16:50 Consult Physician Routine Consulting Provider: Flavio Wall Consult Reason/Comments: Pneumonia Do you want consulting provider notified?: Yes 02/15/24 16:51 Consult Physician Routine Consulting Provider: Farshad Verde Consult Reason/Comments: Myelolipoma Do you want consulting provider notified?: Yes 02/15/24 16:57 Consult Physician Routine Consulting Provider: Poornima Ann Consult Reason/Comments: lung cancer history Do you want consulting provider notified?: Yes 02/16/24 11:54 Consult Physician Routine Consulting Provider: Salvador Nolen Consult Reason/Comments: adrenal lipoma Do you want consulting provider notified?: Yes 02/16/24 13:09 Consult Physician Routine Consulting Provider: Dorian Gray Consult Reason/Comments: renal failure Do you want consulting provider notified?: Yes Primary care physician: Kim Howell Hospital Course: Final Diagnoses: Abdominal pain with nausea, right upper quadrant status post mechanical fall, CT reporting adrenal myolipoma unchanged from prior imaging,fullness of the gallbladder with cholelithiasis and some haziness . Abdominal ultrasound reported hydropic gallbladder with gallstones,no wall thickening or sonographic Stone sign to indicate acute cholecystitis. Acute pneumonia.CT reported right lung consolidation with volume loss, superimposed obstructive pneumonia in a patient with history of squamous cell CA of the right lung. 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 Denies fevers, reports positive chills. Denies chest pain, palpitations or increase in shortness of breath. EKG reported sinus rhythm with occasional PAC, right bundle block, left anterior fascicular block, troponin pending. Afebrile, WBC 25.9. CT of abdomen pelvis reported suspected acute hemorrhage in the myelolipoma, pulmonary contusion and/or pneumonia right lung base. CT addendum reported comparison to patient's PET/CT on 07/10/2023, hazy soft tissue density as well as nodular 1 cm focus within the fatty tumor (adrenal myelolipoma) remain unchanged from that time, making intratumoral hemorrhage less likely. In addition there is fullness of the gallbladder with cholelithiasis and some haziness possible subtle densities in the distal bile duct, consider ultrasound to exclude possibility of Choleydocholelithiasis and early acute cholecystitis. Abdominal ultrasound pending. on admission hypotensive with blood pressure 80/47, respiratory rate 18, pulse 85, maintaining O2 sats of 94% on room air. Responded to IV fluid hydration. Lactic acid 2.3, follow-up 1.5 post fluid resuscitation. creatinine 12.9, platelets 246, sodium 135, potassium 4.6, bicarb 23, BUN 39, creatinine 2.37. Glucose 128. Magnesium 1.7. Total bili 2.2, AST 95, ALT 169, alk phos 140. Tested negative for urine Legionella. Chest x-ray reported no definite radiographic evidence of acute cardiopulmonary disease/process, persistent findings at the right lung base most likely represent chronic process or moderate right pericardial fat. 02/17/2024 evaluated by urology with no further intervention recommended at this time given stability of 7 to 8 years per their review. Evaluated by oncology with no further interventions at this time, recommending follow-up in clinic ou tpatient. Feels better this morning. Afebrile, WBC trending down, 19.8. BUN 61, creatinine decreased to 2.18, LFTs improved. Denies abdominal pain. Denies nausea or vomiting. Maintained on nebulized bronchodilators, IV steroids and Zosyn . Blood sugars better controlled.Denies chest pain, palpitations or shortness of breath. Maintaining O2 sats in the 90s on room air. Expiratory wheezing decreased today. Abdominal ultrasound reported borderline to mild hydropic gallbladder with some layering stones, no wall thickening or sonographic Stone sign to indicate acute cholecystitis, bile duct caliber 6 mm normal, possible subtotal contour nodularity of the liver was slightly heterogenous appearance, correlate for underlying nonspecific hepatocellular disease, known 8.9 cm right adrenal myelolipoma, distal AAA at 3.2 cm, no hydronephrosis. Hemoglobin 12.1, platelets 259. Hemoglobin A1c 6.2 Losartan remains on hold. IV Zosyn. Blood and sputum cultures pending .increase ambulation as tolerated .smoking cessation reinforced. Discharge planning in progress for tomorrow pending final DC recommendations and clearance as per nephrology,pulmonary and general surgery. Significant clinical improvement. Mild expiratory wheezing. Denies chest pain, palpitations or shortness of breath, maintaining O2 sats in the 90s on room air. bicarb 24, BUN 60, creatinine decreased to 1.46 patient will be discharged home today in a stable condition with guarded prognosis pending final DC recommendations and clearance as per infectious disease and nephrology. The impression and plan of care has been dictated as directed. : I performed a history and examination of this patient, discussed the same with the dictator. I agree with the dictator's note ,documented as a scribe. Any additional findings or plans will be noted. Patient Condition at Discharge: Stable Plan - Discharge Summary Discharge Rx Participant: No New Discharge Prescriptions: New Apixaban [Eliquis] 2.5 mg PO BID #60 tab Nicotine 21Mg/24Hr Patch [Habitrol] 1 patch TRANSDERM DAILY patch predniSONE 10 mg PO DIRECTED #30 tab Metoprolol Succinate (ER) [Toprol XL] 12.5 mg PO DAILY #30 tab Amoxic-Pot Clav 875-125Mg [Augmentin 875-125] 1 tab PO BID 2 Days #4 tab Continue Tamsulosin [Flomax] 0.4 mg PO DAILY Levothyroxine Sodium [Synthroid] 150 mcg PO DAILY Aspirin [Adult Low Dose Aspirin EC] 81 mg PO DAILY allopurinoL [Zyloprim] 100 mg PO DAILY Discontinued Metoprolol Tartrate [Lopressor] 50 mg PO BID Apixaban [Eliquis] 5 mg PO BID Losartan Potassium 100 mg PO DAILY Discharge Medication List Levothyroxine Sodium [Synthroid] 150 mcg PO DAILY 12/25/16 [History] Tamsulosin [Flomax] 0.4 mg PO DAILY 12/25/16 [History] Aspirin [Adult Low Dose Aspirin EC] 81 mg PO DAILY 08/20/17 [History] allopurinoL [Zyloprim] 100 mg PO DAILY 02/15/24 [History] Amoxic-Pot Clav 875-125Mg [Augmentin 875-125] 1 tab PO BID 2 Days #4 tab 02/18/24 [Rx] Apixaban [Eliquis] 2.5 mg PO BID #60 tab 02/18/24 [Rx] Metoprolol Succinate (ER) [Toprol XL] 12.5 mg PO DAILY #30 tab 02/18/24 [Rx] Nicotine 21Mg/24Hr Patch [Habitrol] 1 patch TRANSDERM DAILY patch 02/18/24 [Rx] predniSONE 10 mg PO DIRECTED #30 tab 02/18/24 [Rx] Follow up Appointment(s)/Referral(s): Deovnte Manning MD [STAFF PHYSICIAN] - 1 Week Ambulatory/Diagnostic Orders: Complete Blood Count w/diff [LAB.AMB] Time Frame: 3 Days, Location: None Selected
[2024-02-18 13:13] VITALS: BP 130/83; PULSE 80
--- NOTE | 2024-02-18 15:36 | P.PN ---
Subjective Progress Note Date: 02/18/24 Patient is a 83-year-old white male with past medical history significant for squamous cell lung carcinoma originally diagnosed back in 2020 status post chemo/radiation, COPD, ongoing tobacco dependence, coronary artery disease with previous PCI/stent, hypertension, BPH, hypothyroidism, and gout. As stated above, patient does have history of advanced squamous cell lung cancer with subcarinal lymph node involvement. Patient is status post chemo and radiation. Patient does follow up with his oncologist, which I believe is Dr. Ann. Patient presented to the emergency room yesterday afternoon after having a fall on Thursday. He tripped over his cat, landed on a box fan. Most of the impact hit his abdominal area. Denies landing on his side or hitting his head. Since then, he has had some mild bandlike abdominal tenderness. He also reports nausea and vomiting with eating. He has not been eating and drinking a lot because he cannot keep anything down. 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 Image was also read as suspected pulmonary contusion and/or pneumonia at the right lung base. I reviewed the CAT scan myself and compared to previous PET scan. This consolidation and right lung volume loss appears to be consistent with the patient's known lung mass. He is currently in the emergency department, room 20. He is lying in bed, on room air, in no acute distress. SpO2 is 93 to 94%. Patient states that he never hit his chest or head when falling. Denies any right-sided chest pain. Nontender to palpation. No associated crepitus or ecchymosis. He does report some tenderness in the right upper abdominal quadrant. Does report nausea and vomiting over the last 4 days. Associated with eating. Emesis described as brown mixed with food. Denies hematemesis. No diarrhea. Denies rose blood in bowel movements. Denies melena. Denies any infectious pulmonary symptoms such as shortness of breath different from his baseline, change in his chronic cough, significant sputum production, hemoptysis, fevers or chills. CBC does show some leukocytosis with a WBC count of 25.9, hemoglobin 12.9, hematocrit 38.9, platelets 246. BMP on arrival: Sodium 135, potassium 4.6, chloride 101, serum bicarb 23, BUN 39, creatinine 2.37, glucose 128. Lactic acid level 2.3 down to 1.5. LFTs mildly elevated. Total bilirubin 2.2. Overall vital signs are stable. Progress note dated February 17, 2024. 83-year-old male seen in consultation yesterday. Please see the note above. Patient has a history of multiple medical problems including lung cancer, COPD, tobacco dependence syndrome, coronary disease, with previous stent, hypertension, BPH, hypothyroidism, and gout. The patient presented to the emergency department, having fallen, and he apparently injured his abdominal area. Currently, the patient appears to be doing reasonably well. He is on room air. He is not receiving any IV fluids. His procalcitonin level was elevated. Current labs include a white count 19.8, hemoglobin 12.1, hematocrit 39.1, and a platelet count that was normal. Sodium 142, potassium 3.8, chlorides 107, CO2 83, anion gap 12, BUN 61, creatinine 2.18. Glucose was 150. Albumin was 3.2. Blood and sputum sampling is thus far negative. The patient is seen today February 18, 2024 in follow-up on the regular medical fl oor. He is currently sitting up in bed. Awake and alert in no acute distress. Denies any worsening shortness of breath, cough or congestion. Uterine cultures positive for gram-negative bacilli. Blood cultures revealed no growth sodium 142. Potassium 4.4. Bicarb 24. BUN 60. Creatinine 1.46. Glucose 201. Troponin 0.033. He is continue on DuoNeb ventilations, Solu-Medrol antibiotics in the form of Zosyn. Anticoagulated with Eliquis. NicoDerm patch in place. Objective - Vital Signs Vital signs: Vital Signs Temp 97 F L 02/18/24 08:00 Pulse 80 02/18/24 12:00 Resp 16 02/18/24 12:00 BP 130/83 02/18/24 12:00 Pulse Ox 97 02/18/24 12:00 FiO2 Intake & Output 02/17/24 02/18/24 02/18/24 18:59 06:59 18:59 Intake Total 960 240 472 Output Total 1 Balance 960 239 472 Intake: Intake, IV Titration 500 Amount Piperacillin-Tazobactam 3 200 .375 gm In Sodium Chloride 0.9% 100 ml @ 25 mls/hr IVPB Q8H MARG[facility]ITO Rx#: [id number] Sodium Chloride 0.9% 1, 300 000 ml @ 50 mls/hr IV . Q20H MARGARITO Rx#:[id number] Oral 460 240 472 Output: Urine 1 Other: Voiding Method Toilet Toilet Toilet # Voids 1 - Exam GENERAL EXAM: Alert, disheveled 83-year-old male, on room air, comfortable in no apparent distress. HEAD: Normocephalic. EYES: Normal reaction of pupils, equal size. NOSE: Clear with pink turbinates. THROAT: No erythema or exudates. NECK: No masses, no JVD. CHEST: No chest wall deformity. LUNGS: Equal air entry with no crackles, wheeze, rhonchi or dullness. CVS: S1 and S2 normal with no audible murmur, regular rhythm. ABDOMEN: No hepatosplenomegaly, normal bowel sounds, no guarding or rigidity. SPINE: No scoliosis or deformity SKIN: No rashes CENTRAL NERVOUS SYSTEM: No focal deficits, tone is normal in all 4 extremities. EXTREMITIES: There is no peripheral edema. No clubbing, no cyanosis. Peripheral pulses are intact. - Labs CBC & Chem 7: 02/17/24 06:09 02/18/24 09:01 Labs: Abnormal Lab Results - Last 24 Hours (Table) 02/17/24 02/17/24 02/18/24 Range/Units 12:00 20:50 05:53 Chloride (98-107) mmol/L BUN (9-20) mg/dL Creatinine (0.66-1.25) mg/dL Glucose (74-99) mg/dL POC Glucose (mg/dL) 157 H 154 H (70-110) mg/dL Urine Protein Trace H (Negative) Urine Glucose (UA) 1+ H (Negative) 02/18/24 02/18/24 Range/Units 09:01 12:01 Chloride 109 H (98-107) mmol/L BUN 60 H (9-20) mg/dL Creatinine 1.46 H (0.66-1.25) mg/dL Glucose 201 H (74-99) mg/dL POC Glucose (mg/dL) 202 H (70-110) mg/dL Urine Protein (Negative) Urine Glucose (UA) (Negative) Microbiology - Last 24 Hours (Table) 02/15/24 20:13 Gram Stain - Preliminary Sputum Sputum Culture - Preliminary Gram Neg Bacilli 02/15/24 16:20 Blood Culture - Preliminary Blood 02/15/24 16:05 Blood Culture - Preliminary Blood Assessment and Plan Assessment: Fall. 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 History of non-small cell lung carcinoma, originally diagnosed back in 2020, status post chemo and radiation. CT scan results from this admission identified a right lung consolidation with volume loss of the likely consistent with the patient's prior history of lung cancer and treatment changes. Superimposed obstructive pneumonia not completely excluded at this time. Pulmonary contusion felt to be less likely. Mild acute COPD exacerbation. Acute leukocytosis. Mild transaminitis. Severe dehydration. Acute kidney injury, possibly secondary to above and ATN. Chronic ongoing tobacco dependence, continues to smoke 3/4 to 1 pack/day. History of coronary artery disease. History of hypertension. History of hypothyroidism. History of benign prostatic hyperplasia. History of gout. Plan: The patient was seen and evaluated Currently stable and on room air. Quite anxious to go home Continued on bronchodilators and steroids Continued on antibiotics Educated regarding the importance of complete smoking cessation NicoDerm patch in place Cleared for discharge from the pulmonary stand I have personally seen and examined the patient, performed the documentation and the assessment and plan as written. Number of minutes spent on the visit: 10.
== END 2024-02-18 13:10 | disposition home or self-care (01) | DRG 193 ==
LOC: EC 11:34 → 3SCARD 18:27
PROVIDERS: ADMIT Family Medicine; ATTEND Family Medicine
DX: J18.9 Pneumonia, unspecified organism (principal); N17.0 Acute kidney failure with tubular necrosis; K82.1 Hydrops of gallbladder; C34.91 Malignant neoplasm of unspecified part of right bronchus or lung; J44.0 Chronic obstructive pulmonary disease with (acute) lower respiratory infection; J44.1 Chronic obstructive pulmonary disease with (acute) exacerbation; I45.2 Bifascicular block; E87.20 Acidosis, unspecified; I31.9 Disease of pericardium, unspecified; K80.20 Calculus of gallbladder without cholecystitis without obstruction; E03.9 Hypothyroidism, unspecified; E86.0 Dehydration; R74.8 Abnormal levels of other serum enzymes; M10.9 Gout, unspecified; I48.91 Unspecified atrial fibrillation; I10 Essential (primary) hypertension; N40.0 Benign prostatic hyperplasia without lower urinary tract symptoms; R73.03 Prediabetes; D17.79 Benign lipomatous neoplasm of other sites; Z68.30 Body mass index [BMI] 30.0-30.9, adult; F17.210 Nicotine dependence, cigarettes, uncomplicated; E66.9 Obesity, unspecified; I25.10 Atherosclerotic heart disease of native coronary artery without angina pectoris; I95.9 Hypotension, unspecified; I49.1 Atrial premature depolarization; W01.0XXD Fall on same level from slipping, tripping and stumbling without subsequent striking against object, subsequent encounter; Z28.310 Unvaccinated for COVID-19; Z95.5 Presence of coronary angioplasty implant and graft; S40.812D Abrasion of left upper arm, subsequent encounter; Z92.21 Personal history of antineoplastic chemotherapy; Z92.3 Personal history of irradiation; Z79.82 Long term (current) use of aspirin; Z79.899 Other long term (current) drug therapy; Z79.01 Long term (current) use of anticoagulants
CPT/HCPCS: 36415; 71045; 71046; 71250; 74176; 76700; 80048; 80053; 81003; 83036; 83605; 83735; 84145; 84484; 85025; 87040; 87070; 87077; 87186; 87205; 87449; 93005; 94640; 96365; 96366; 96375; 96376; 99285

== ENCOUNTER → 2024-04-04 | Outpatient (CLI) | payer MEDICARE ==
[2024-04-04 19:18] LABS: HCT 39.2 % (39.6-50.0); HGB 11.9 g/dL (13.0-17.0); MCHC 30.4 g/dL (32.0-37.0); MCV 95.4 FL (80.0-97.0); Mean Platelet Volume 11.5 FL (9.5-12.2); NRBC Per 100 WBC 0 X 10*3/uL (0.00-0.01); Platelet Count 312 X 10*3/uL (140-440); RBC 4.11 X 10*6/uL (4.40-5.60); RDW 14.4 % (11.5-14.5); WBC 12.34 X 10*3/uL (4.50-10.00)
[2024-04-04 19:20] LABS: Chol/HDL Ratio 2.67 Ratio; VLDL Calculation 8.78 mg/dL (5.00-40.00)
[2024-04-04 19:21] LABS: ALT 13 U/L (10-49); AST 25 U/L (14-35); Albumin 3.6 g/dL (3.8-4.9); Albumin/Globulin Ratio 1.12 Ratio (1.60-3.17); Alkaline Phosphatase 94 U/L (41-126); BUN/Creat Ratio 15.12 Ratio (12.00-20.00); Blood Urea Nitrogen 24.2 mg/dL (9.0-27.0); Calcium 9.5 mg/dL (8.7-10.3); Carbon Dioxide 27.9 mmol/L (21.6-31.8); Chloride 102 mmol/L (96-109); Globulin 3.2 g/dL (1.6-3.3); Glucose 101 mg/dL (70-110); LDL Cholesterol,Calculated 61.3 mg/dL (0.0-131.0); Potassium 4.3 mmol/L (3.5-5.5); Sodium 143 mmol/L (135-145); Total Bilirubin 0.7 mg/dL (0.3-1.2); Total Protein 6.8 g/dL (6.2-8.2)
== END | disposition home or self-care (01) ==
LOC: LABWHC1 10:46
PROVIDERS: ATTEND Family Medicine
DX: I10 Essential (primary) hypertension (principal); E03.9 Hypothyroidism, unspecified; E78.5 Hyperlipidemia, unspecified; J44.89 Other specified chronic obstructive pulmonary disease; F17.210 Nicotine dependence, cigarettes, uncomplicated
CPT/HCPCS: 36415; 80053; 80061; 83036; 84443; 85027

== ENCOUNTER → 2024-08-08 | Outpatient (CLI) | payer MEDICARE ==
[2024-08-08 13:30] LABS: African American GFR (CKD) 74 (>60 ml/min/1.73 sqM); Blood Urea Nitrogen 19 mg/dL (9-20); Non-African American GFR(CKD) 64 (>60 ml/min/1.73 sqM)
--- NOTE | 2024-08-08 15:24 | CT ---
EXAMINATION TYPE: CT chest w con CT DLP: 637 mGycm, Automated exposure control for dose reduction was used. DATE OF EXAM: 08/08/2024 1:59 PM COMPARISON: CT chest abdomen and pelvis 02/15/2024, PET CT 07/10/2023, 01/09/2023, CT chest 07/18/2022 CLINICAL INDICATION:Male, 84 years old with history of J44.1 COPD; PHH, LUNG CA F/U TECHNIQUE: Multiple axial images were obtained through the chest following the administration of 100 cc of Isovue 300. . Coronal and sagittal reformats reviewed. FINDINGS: LUNGS/ PLEURA: No pleural effusion or pneumothorax. No new focal consolidation. Similar posttreatment changes to the inferior right lung with perihilar soft tissue and right lower lung atelectatic jane e. No new suspicious pulmonary nodule or mass. AIRWAY: Patent. Right inferior bronchus secretions identified again. HEART: Size within normal limits. No pericardial effusion. MEDIASTINUM: No evidence of adenopathy. Calcification within the right hilar region. VASCULATURE: No aortic aneurysm. MUSCULOSKELETAL: No acute osseous abnormalities. Remote healed injuries to both distal clavicles. Mul tilevel degenerative disc disease. No aggressive osseous lesion. SOFT TISSUES/LYMPH NODES: Anterior left chest wall superficial 8mm lesion likely representing a sebac eous cyst. Stable. LOWER NECK: No significant findings. UPPER ABDOMEN: Partial visualization of intrahepatic biliary duct dilatation. Redemonstration of righ t adrenal mass containing fat density measuring 7.4 cm. IMPRESSION: 1. Similar postsurgical changes of the right lung with residual scarring/atelectasis. Trace secretion s identified within the right lower lung bronchus. No CT evidence for recurrence within the chest. 2. Stable right adrenal myelolipoma. 3. Mild intrahepatic biliary duct dilatation. Correlation with obstructive biliary labs is recommende d. Consider further evaluation MRCP as clinically indicated. [facility], , 08/08/2024 3:22 PM
== END | disposition home or self-care (01) ==
LOC: RADCTMAIN 12:08
PROVIDERS: ATTEND Family Medicine
DX: J44.1 Chronic obstructive pulmonary disease with (acute) exacerbation
CPT/HCPCS: 36415; 71260; 82565; 84520

== ENCOUNTER → 2024-10-03 | Outpatient (CLI) | payer MEDICARE ==
--- NOTE | 2024-10-04 12:38 | CA ---
Transthoracic Echo Report Name: Jaya Thompson Age: 84 Gender: M : 1940 Exam Date: 10/03/2024 14:30 Exam Location: [facility] Ht (in): 68 Wt (lb): 180 Ordering Physician: Kim Howell DO Attending/Referring Phys: Catia Asif [facility] [employer] Vee Murrieta RDCS Procedure CPT: Indications: I48.20 CHRONIC ATRIAL FIBRILLATION, UNSPECIFIED D6 Cardiac Hx: smoker Technical Quality: Technically difficult study Contrast 1: Total Dose (mL): Contrast 2: Total Dose (mL): MEASUREMENTS (Male / Female) Normal Values 2D ECHO LV Diastolic Diameter PLAX 4.6 cm 4.2 - 5.9 / 3.9 - 5.3 cm LV Systolic Diameter PLAX 3.0 cm IVS Diastolic Thickness 1.2 cm 0.6 - 1.0 / 0.6 - 0.9 cm LVPW Diastolic Thickness 1.0 cm 0.6 - 1.0 / 0.6 - 0.9 cm LV Relative Wall Thickness 0.5 RV Internal Dim ED PLAX 3.0 cm LA Systolic Diameter LX 4.4 cm 3.0 - 4.0 / 2.7 - 3.8 cm LA Volume 57.9 cm??? 18 - 58 / 22 - 52 cm??? LA Volume Index 29.0 cm???/m??? 16 - 28 cm???/m??? M-MODE LV Diastolic Diameter MM 4.3 cm 4.2 - 5.9 / 3.9 - 5.3 cm LV Systolic Diameter MM 2.2 cm LV Cardiac Index MM Teich 1905.7 cm???/min???m??? IVS Diastolic Thickness MM 0.9 cm 0.6 - 1.0 / 0.6 - 0.9 cm LVPW Diastolic Thickness MM 1.0 cm 0.6 - 1.0 / 0.6 - 0.9 cm LV Relative Wall Thickness MM 0.4 0.24 - 0.42 / 0.22 - 0.42 LV Mass Index MM 62.8 g/m??? 49 - 115 / 43 - 95 g/m??? Aortic Root Diameter MM 3.3 cm DOPPLER AV Peak Velocity 244.2 cm/s AV Peak Gradient 23.9 mmHg AV Mean Velocity 159.1 cm/s AV Mean Gradient 11.6 mmHg AV Velocity Time Integral 48.4 cm LVOT Peak Velocity 106.6 cm/s LVOT Peak Gradient 4.5 mmHg LVOT Velocity Time Integral 25.4 cm MV Area PHT 2.7 cm??? Mitral E Point Velocity 108.2 cm/s Mitral A Point Velocity 122.6 cm/s Mitral E to A Ratio 0.9 MV Deceleration Time 284.8 ms FINDINGS Left Ventricle Left ventricular ejection fraction is estimated at 55-60 %. Left ventricular cavity size normal. Mildly increased septal wall thickness. Right Ventricle Normal right ventricular size and function. Unable to estimate the right ventricular systolic pressure. Right Atrium Right atrium not well visualized. Left Atrium Mildly increased left atrial diameter. Mildly increased left atrial area. Mitral Valve Structurally normal mitral valve. No mitral stenosis, regurgitation or prolapse. Aortic Valve Aortic valve sclerosis. Mild aortic stenosis with a peak gradient of 24 mmHg and a mean gradient of 11 mmHg. Tricuspid Valve Structurally normal tricuspid valve. No tricuspid stenosis, regurgitation or prolapse. Pulmonic Valve Pulmonic valve not well visualized. No pulmonic regurgitation. Pericardium No pericardial or pleural effusion. Aorta Normal size aortic root and proximal ascending aorta. CONCLUSIONS Technically difficult study suboptimal views. However LV systolic function appears to be normal with mild aortic valve stenosis. Mild mitral and tricuspid regurgitation no pericardial effusion Previewed by: Dr. Kamille Valentine MD (Electronically Signed) Final Date: 04 October 2024 12:37
== END | disposition home or self-care (01) ==
LOC: RADECHMAIN 14:24
PROVIDERS: ATTEND Family Medicine
DX: I08.3 Combined rheumatic disorders of mitral, aortic and tricuspid valves (principal); I48.20 Chronic atrial fibrillation, unspecified; D68.9 Coagulation defect, unspecified
CPT/HCPCS: 93306

== ENCOUNTER → 2025-04-25 | Outpatient (CLI) | payer MEDICARE ==
[2025-04-25 14:50] LABS: African American GFR (CKD) 56 (>60 ml/min/1.73 sqM); Blood Urea Nitrogen 20 mg/dL (9-20); Non-African American GFR(CKD) 48 (>60 ml/min/1.73 sqM)
--- NOTE | 2025-04-25 16:18 | CT ---
CT chest with contrast HISTORY: Lung cancer, progression study. COMPARISON: 08/08/2024. TECHNIQUE: Multiple axial images are obtained through the thorax following IV contrast material. FINDINGS: There is marked volume loss on the right with elevation right hemidiaphragm. There is persistent stab le consolidation in the right lower lower thorax extending to the right infrahilar region. There is n ew mild focal interstitial density in the right lung anteriorly which could represent continued postt reatment interstitial changes. There are few stable micronodules in the left lung. The great vessels chest are normal. There is no mediastinal, hilar or axillary adenopathy. There is no pleural effusion or pneumothorax. Limited scanning through the upper abdomen reveals a stable 7.6 mm myelo lipoma of the right adrenal gland. There are no osseous lesions. IMPRESSION: 1. Stable Volume loss in the right lung with pleural parenchymal scarring in the right lung base. 2. Interval development of mild focal interstitial density in the more superior aspect of the right l antoine which could represent posttreatment interstitial changes but continued follow-up is recommended. 3. A few stable micronodules in the left lung. 4. Stable myelolipoma of the right adrenal gland. [facility], , 04/25/2025 4:15 PM
== END | disposition home or self-care (01) ==
LOC: RADCTMAIN 14:16
DX: J94.8 Other specified pleural conditions (principal); D17.79 Benign lipomatous neoplasm of other sites; R91.8 Other nonspecific abnormal finding of lung field; Z85.118 Personal history of other malignant neoplasm of bronchus and lung
CPT/HCPCS: 82565; 84520; 71260; 36415; Q9967